=== PATIENT | male | born 1970 | race Caucasian/White ===

== ENCOUNTER 2020-08-02 12:06 | Outpatient (CLI) | payer OTHER, SELFPAY ==
[2020-08-02 12:51] LABS: SARS-CoV-2 Ag Negative (Negative)
== END 2020-08-02 12:07 | disposition home or self-care (01) ==
PROVIDERS: PCP Family Medicine; Visit Provider Family Medicine
DX: J00 Acute nasopharyngitis [common cold] (principal); Z20.828 Contact with and (suspected) exposure to other viral communicable diseases
CPT/HCPCS: 87081; 87426; 87880; C9803

== ENCOUNTER 2020-08-02 13:02 | Outpatient (CLI) | payer OTHER, SELFPAY ==
[2020-08-02 22:17] LABS: SARS-CoV-2 RNA PCR Negative
== END 2020-08-02 13:03 | disposition home or self-care (01) ==
LOC: CHSLAB 13:04
PROVIDERS: PCP Family Medicine; Visit Provider Family Medicine
DX: J00 Acute nasopharyngitis [common cold] (principal); Z20.828 Contact with and (suspected) exposure to other viral communicable diseases
CPT/HCPCS: C9803; U0003

== ENCOUNTER 2021-11-26 08:00 | Outpatient (CLI) | payer OTHER, SELFPAY ==
[2021-11-26 09:12] LABS: SARS-CoV-2 RNA PCR Negative (Negative)
== END 2021-11-26 08:01 | disposition home or self-care (01) ==
LOC: CHSLAB 08:02
PROVIDERS: PCP Family Medicine; Visit Provider Surgery
DX: Z01.818 Encounter for other preprocedural examination (principal); Z20.822 Contact with and (suspected) exposure to COVID-19
CPT/HCPCS: C9803; U0003; U0005

== ENCOUNTER 2021-11-29 07:38 | Outpatient (CLI) | payer OTHER, SELFPAY ==
[2021-11-29 10:59] LABS: IFOB Positive Control Positive; Immunochemical Fecal Occult Bl Positive (N)
== END 2021-11-29 07:39 | disposition home or self-care (01) ==
LOC: ANHLAB 07:39
PROVIDERS: PCP Family Medicine; Visit Provider Internal Medicine Gastroenterology
DX: R19.7 Diarrhea, unspecified (principal)
CPT/HCPCS: 82274; 87045; 87427

== ENCOUNTER 2021-11-30 01:22 | Day surgery (SDC) | payer OTHER, SELFPAY ==
[2021-11-21 14:27] VITALS: BMI 27.6
--- NOTE | 2021-11-21 14:34 | PC.NURSE ---
Report to the Outpatient Waiting Room, entrance under the green pavilion located off [facility], at time _1000_ on date _[id number]_. OR Time: __1200__. - You and your visitor will be asked a series of questions to screen for COVID 19 for your protection. - A mask is required within the hospital. Preoperative COVID Testing Requirements: Covid testing at [facility] 11-26-2021. No COVID Test needed if: (proof is required; if not received patient will have Rapid Test prior to entry) - Patient has received COVID Vaccine at least 14 days prior to procedure date or - Patient has positive COVID test result within last 90 days of surgery date. COVID Test needed if above criteria is not met If not COVID vaccinated a COVID test must be conducted within 72 hours of surgery and patient is asked to isolate self from time of testing until procedure. You will go to the [facility] for your COVID testing. The [facility] is located at the corner of [address] [facility]. You will only be called if COVID results are positive and your surgeon may reschedule your elective surgery date. Patients may have clear liquids (water, carbonated beverages, clear teas, apple juice) until 3 hours prior to surgery with a maximum of 20 ounces. - No food from midnight until time of surgery Take the following medications with a SIP of water the morning of surgery: Medications to discontinue per physician ___Multivitamin, B complex and fish oil Date to take last sijr____[id number] Please no make-up, nail georgian, hairspray, perfume, deodorant, or body powder the day of surgery. No jewelry (including any body piercings) or valuables the day of surgery, leave them at home. Please take a shower or bath the night before, or the morning of, surgery with an antibacterial soap. Wear comfortable, loose fitting clothing. Children are encouraged to wear pajamas. - Jewelry must be removed prior to entering the operating room. Rings and piercings that are not removed may be cut off. - The hospital will not accept responsibility for valuables. - Please leave all valuables, including medications, at home the day of surgery. If you are going home after surgery, a licensed furniture mover driver must drive you home. - NO public transportation without another adult. - We recommend that an adult stay with you for 24 hours following discharge. - We also recommend that you do not drive, make important decision, drink alcoholic beverages, or take any drugs that were not prescribed by your health care provider for at least 24 hours after your discharge time. For Pediatric surgeries, we recommend two adults accompany the child home (only one inside the building at this time). One visitor will be allowed to accompany the patient into the hospital. Patients visitor will be instructed to remain with patient at all times or leave the building. We will allow the visitor to come back to the postoperative area when patient is ready. Follow any additional instructions given to you from your surgeon. Telephone instructions given to patient____and asked if any additional questions and then verbalized understanding. Patient advised to call surgeon office or pre surgery nurse liaison [phone] if any additional questions.
[2021-11-30] VITALS (8 sets, daily range): BP systolic 98–131; BP diastolic 57–79; PULSE 48–71; RESP 10–20; TEMP 36.8; O2SAT 100
[2021-11-30] MEDS: ACETAMINOPHEN 500 MG TABLET 1000 MG PO (10:03)
[2021-11-30] MEDS: KETOROLAC 15 MG/ML VIAL (*BKC) IV PUSH (10:26)
--- NOTE | 2021-11-30 10:40 | WPDHPUPDATE1 ---
History and Physical Update Update Date/Time: 11/30/21 10:40 History and Physical has been reviewed, including an updated exam of the patient. There are NO changes in the patient's condition. Risks, benefits, and alternatives have been discussed and questions answered. Patient agrees to proceed with procedure.
--- NOTE | 2021-11-30 10:50 | P.PNAN_ITS ---
Anes - Initial Pre Proc Eval Procedure: Operation Date: 11/30/21 12:00 Proposed Procedures p Open Recurrent Right Inguinal Hernia Repair with Mesh - Aaron James DO Date/Time: 11/30/21 10:50 Surgeon: Aaron James DO Pre Op Diagnosis: recurrent right inguinal hernia Patient Data Age: 51 Gender: M Height: 1.88 m Weight: 96.15 kg Last Vital Signs Temp 36.8 C 11/30/21 09:59 Pulse 71 11/30/21 09:59 Resp 20 11/30/21 09:59 BP 128/77 11/30/21 09:59 Pulse Ox 100 11/30/21 09:59 Allergies Allergy/AdvReac Type Severity Reaction Status Date / Time No Known Allergies Allergy Verified 11/21/21 14:25 Home Medications Medication Instructions Recorded Confirmed Type mesalamine 1.2 gram tablet,delayed 4.8 g PO HS 11/08/21 11/30/21 History release multivitamin 1 tablet PO DAILY 11/08/21 11/30/21 History omega 4-chp-poe-fish oil 60 mg-90 1 cap PO DAILY 11/08/21 11/30/21 History mg-500 mg capsule vitamin B complex 1 tablet PO DAILY 11/08/21 11/30/21 History Patient hx anesthesia problems: post op nausea/vomiting Family hx anesthesia problems: none Results Review: All pre-operative results and documents have been reviewed as part of the pre-operative evaluation. [facility] Past Medical History Medical History History of blood transfusion Surgical History Surgical History H/O foot surgery x3 History of right inguinal hernia repair February [address] Abraham Juan Family History Family History Father Family history of lung cancer Family history of malignant melanoma Family history of pancreatic cancer Family history of malignant neoplasm of breast in first degree relative Other Family history of malignant neoplasm of breast Social History Social History Smoking status: Never smoker Alcohol intake: current Living arrangements: with family Spiritual care concerns: No Anes - Eval Final PreProcedure Day of Procedure 11/30/21 10:50 Patient weight: overweight Heart: regular rate and rhythm Lungs: clear to auscultation and normal air movement Airway: Mallampati scale class II Neurological: alert and oriented Last oral intake: >/= 8 hours ASA classification: II Emergent: no Anesthetic plan: proceed Anesthesia type and monitoring: general ETT and standard monitoring Results Review: All pre-operative results and documents have been reviewed as part of the pre-operative evaluation. Informed Consent: The patient's anesthetic plan and its attendant risks and benefits were discussed with the patient/family/POA. Questions were solicited and answers provided to the satisfaction of the patient/family/POA.
[2021-11-30] MEDS: SCOPOLAMINE 1.5 MG PATCH TRANSDERM (11:03)
[2021-11-30] MEDS: ceFAZolin 2 GM/D5W 50 ML 2 GM/50 ML BAG IVPB (11:07)
[2021-11-30] MEDS: LACTATED RINGERS 1,000 ML 30 ML IV CONT (11:07)
--- NOTE | 2021-11-30 12:23 | W.PM.PROC2 ---
Procedure Note - Detailed Date of Procedure 11/30/21 Pre-op Diagnosis recurrent right inguinal hernia Post-op Diagnosis Same (Recurrent direct right inguinal hernia) Procedure Performed Open recurrent right inguinal hernia repair with mesh Surgeon Aaron James, DO Anesthesia General and Local (0.25% bupivacaine with epinephrine) Indications This is a 51-year-old man who presented with a recent finding of a recurrent right inguinal hernia. He has a history of robotic assisted laparoscopic right inguinal hernia repair mesh on 03/24/2019. He was doing well after this repair but then about 6 months ago he noticed a recurrent bulge with some discomfort. He was found to have a recurrent right inguinal hernia on physical exam. Discussions were made with the patient about treatment options and decision was made to proceed with open recurrent right inguinal hernia repair with possible mesh. Findings Open recurrent right inguinal hernia repair was performed. The patient was found to have a recurrent direct right inguinal hernia. The hernia sac was reduced back within the abdominal cavity and a large PerFix Light plug was placed within the defect. The inner flanges of the mesh were secured to the inguinal floor. The patch was then placed deep to the external oblique aponeuroses overlying the inguinal floor and a slit was made in the mesh for the cord contents to pass through. No specimens were obtained for pathology. Description of Procedure Procedure as well as risks, benefits, and alternatives were discussed with the patient. Written consent was obtained and placed in chart prior to procedure. Patient was brought back to surgical suite. He was placed supine on operating table. Time-out was done to confirm patient and procedure. He was then intubated by the anesthesia department. His right groin area was prepped and draped in sterile fashion using chlorhexidine prep. A 6 cm oblique incision was made in the right groin region just superior to the inguinal ligament. Electrocautery was used for hemostasis and for dissection through Rissa's fascia. The external oblique aponeurosis was identified and was cleared the way down to the external ring. The external oblique aponeuroses was then cut using a 15 blade scalpel and then the incision was extended down to the external ring using Metzenbaum scissors. The cord contents were identified and isolated. No indirect hernia defect was identified. Just medial to the cord contents, I did identify a direct inguinal defect. The hernia sac was freed up from the surroundings cord contents all the way down to the floor of the inguinal canal. The hernia sac was then reduced back down into the abdominal cavity. I dissected widely enough around hernia sac to allow for mesh placement. The large PerFix Light plug was then placed within the hernia defect and carefully laid out to cover the entire hernia defect. The inner flanges of the mesh were then secured to the inguinal floor using 3-0 Vicryl simple interrupted sutures. I then ensured that there was a wide enough space for the patch to be placed along the inguinal floor. The patch was then placed under the cord contents and angle down to where it was overlapping the pubic tubercle. The mesh was secured to the pubic tubercle using a 2-0 Prolene simple interrupted suture. Several other simple interrupted sutures were placed along the mesh to the shelving edge of the inguinal canal and along the floor of the inguinal canal. A slit was cut in mesh long enough to allow the cord contents to lay flat. Back end of the 2 tails of the mesh were then secured around the cord contents with another simple interrupted suture. The mesh appeared to be lying flat within the inguinal floor. One final inspection was made no other abnormalities were noted. The external oblique aponeurosis was then closed over the mesh using 0 Vicryl running suture and the way back to the edge of the e
== END 2021-11-30 15:07 | disposition home or self-care (01) ==
PROVIDERS: PCP Family Medicine; Visit Provider Surgery
PROC: (CPT 49520; principal; 2021-11-30 12:00)
DX: K40.91 Unilateral inguinal hernia, without obstruction or gangrene, recurrent (principal)
CPT/HCPCS: 49520; A9270; C1781; J0690; J1100; J1885; J2250; J2405; J2704; J3010; J7120

== ENCOUNTER 2022-12-18 12:49 | Outpatient (CLI) | payer OTHER, SELFPAY ==
--- NOTE | ~2022-12-18 | XR_ITS ---
EXAMINATION: [id number] DATE: 12/18/2022 13:03 INDICATION: Left foot pain. TECHNIQUE: 4 views of left foot were obtained. COMPARISON: Left foot radiographs 05/02/2018 FINDINGS: There is deformity of base of first distal phalanx resulting in moderate hallux valgus. The re is an old healed fracture deformity of calcaneus. There is severe osteoarthritis of first metatars ophalangeal joint. Surgical clips overlie the lower leg and heel. IMPRESSION: 1. Moderate hallux valgus. 2. Severe osteoarthritis of first metatarsophalangeal joint. Reviewed, dictated and finalized at location A.
== END 2022-12-18 12:50 | disposition home or self-care (01) ==
LOC: ANHBWCIMG 12:51
PROVIDERS: Visit Provider Orthopaedic Surgery
DX: M20.12 Hallux valgus (acquired), left foot (principal); M19.072 Primary osteoarthritis, left ankle and foot
CPT/HCPCS: 73630

== ENCOUNTER 2023-08-10 11:56 | Outpatient (CLI) | payer OTHER, SELFPAY ==
--- NOTE | ~2023-08-10 | XR_ITS ---
XR ankle LT min 3V DATE: 08/10/2023 12:17 INDICATION: Wound on plantar surface of foot near heel since April TECHNIQUE: 4 views of left ankle COMPARISON: 05/09/2019 MR left ankle 04/2018 left foot FINDINGS: [place] are noted at the posterior aspect of the calcaneus. There is very prominent soft ti ssue swelling and multiple surgical clips in the anterior left lower leg. There is chronic calcaneal deformity, not significantly changed since 05/02/2018. There is subcutaneous soft tissue lucency along the plantar aspect of the foot subjacent to the calca neus likely corresponding to the clinical complaint of wound on the plantar surface of the foot. No c alcaneal periosteal reaction or bone destruction is evident. IMPRESSION: Plantar soft tissue wound without radiographic evidence of periosteal reaction or bone de struction of the calcaneus to suggest any evidence of osteomyelitis Posterior diego along the calcaneus Very prominent soft tissue swelling and surgical on the anterior lower leg Reviewed, dictated and finalized at location B. ERN FILER IMPRESSION: Plantar soft tissue wound without radiographic evidence of perioste al reaction or bone destruction of the calcaneus to suggest any evidence of ost eomyelitis Posterior diego along the calcaneus Very prominent soft tissue swelling and surgical on the anterior lower leg
== END 2023-08-10 11:57 | disposition home or self-care (01) ==
LOC: CHSIMG 12:00
PROVIDERS: PCP Family Medicine; Visit Provider Family Medicine
DX: M79.672 Pain in left foot (principal); M79.89 Other specified soft tissue disorders; Z98.890 Other specified postprocedural states
CPT/HCPCS: 73610

== ENCOUNTER 2024-06-05 12:59 | Outpatient (RCR) | payer MEDICARE, SELFPAY ==
--- NOTE | 2024-06-05 17:13 | OPREHPOC ---
Outpatient Therapy Plan of Care This is a Multidisciplinary Plan of Care that may contain components documented by all disciplines (PT, OT, and ST.) PT Problem 1 PT Problem #1 Knowledge Deficit PT Goal 1 Goal / Goal Update The patient will be independent in a home exercise program. Target Visit 4 PT Problem 2 PT Problem #2 Impaired Balance PT Goal 1 Goal / Goal Update The patient will demonstrate a low fall risk per the Tinetti Balance Scale. The patient will perform TUG test in 10 seconds with his custom prosthesis and no AD. Target Visit 12 PT Problem 3 PT Problem #3 Impaired Strength PT Goal 1 Goal / Goal Update The patient will demonstrate 5/5 bilateral glute max and glute med strength to improve balance and gait. Target Visit 12 PT Problem 4 PT Problem #4 Impaired Gait PT Goal 1 Goal / Goal Update The patient will ambulate 1,000 feet with his custom prosthesis and no AD with good mechanics and safety noted. Target Visit 12 PT Problem 5 PT Problem #5 Impaired Functional Mobil PT Goal 1 Goal / Goal Update The patient will demonstrate 40% or less self perceived disability per the LEFS. Target Visit 12
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
--- NOTE | 2024-06-25 08:56 | OPREHPOC ---
Outpatient Therapy Plan of Care This is a Multidisciplinary Plan of Care that may contain components documented by all disciplines (PT, OT, and ST.) PT Problem 1 PT Problem #1 Knowledge Deficit PT Goal 1 Goal / Goal Update The patient will be independent in a home exercise program. Target Visit 4 Progress Met PT Problem 2 PT Problem #2 Impaired Balance PT Goal 1 Goal / Goal Update The patient will demonstrate a low fall risk per the Tinetti Balance Scale. -met The patient will perform TUG test in 10 seconds with his custom prosthesis and no AD. -progress towards (12 seconds) Target Visit 12 Progress Partially Met PT Problem 3 PT Problem #3 Impaired Strength PT Goal 1 Goal / Goal Update The patient will demonstrate 5/5 bilateral glute max and glute med strength to improve balance and gait. Target Visit 12 Progress Met PT Problem 4 PT Problem #4 Impaired Gait PT Goal 1 Goal / Goal Update The patient will ambulate 1,000 feet with his custom prosthesis and no AD with good mechanics and safety noted. Target Visit 12 Progress Met PT Problem 5 PT Problem #5 Impaired Functional Mobil PT Goal 1 Goal / Goal Update The patient will demonstrate 40% or less self perceived disability per the LEFS. -progress towards (55%) Target Visit 12 Progress Partially Met
--- NOTE | 2024-06-25 08:57 | PTOPPROG ---
Assessment and note entered by Minda Canas, PT Evaluation Information Assessment Status Progress Diagnosis L BKA ICD-10 Condition Codes (PT) Difficulty Walking R26.2 Other ICD-10 Condition Codes ( Z89.512, Z74.09 PT) Onset 03/19/24 Subjective Information Brionna Young reports he is doing well overall with his prosthesis and getting used to wearing it . He notes he gets more pain when he over does it and is up on his feet too much but taking it easy for a day will resolve the pain. He is up to 3 hours of wear and 1 hour off now and will be up to a full day of wear by 07/04/24. He has worn his prosthesis for a full day when his daughters had all day tournaments but he used his crutches to help take some of the load off. He had an appointment with his telephone technician last week and some adjustments were made to his prosthesis which has made it more comfortable. He will have another appointment in about a week. He feels comfortable with his home exercises and reports he knows it will still take some getting used to but he is comfortable with the prosthesis and walking in it. Assessment PT Clinical Summary Brionna Young has completed 6 skilled PT visits for prosthetic training following a left BKA on . He is reporting mild pain in the residual limb with excessive walking with the prosthesis. Overall, he is comfortable with walking with his prosthesis and home exercises. He objectively demonstrates improved gait with his prosthesis to independent without an AD, improved endurance demonstrating the ability to ambulate 1,250 feet during the 6 minute walk test, improved balance to low fall risk, and improved LE strength to 5/5 throughout. He has met 4 out of 6 goals and made progress towards the remaining two goals. He will continue home exercises and increasing wear time in the prosthesis independently for the next two weeks and was instructed to follow up with PT if needed. Plan of Care Interventions Gait Training,Neuro Re-education,Patient/Caregiver Educati,Therapeutic Activities,Therapeutic Exercise PT Services Indicated No Treatment Frequency and 1 time a week for 2 visits as needed Duration These treatments will address the objective and functional deficits as defined above. The patient will be advanced safely and appropriately in order for the patient to progress towards his/her prior level of function. Additional exercises will be introduced and as well as a comprehensive home exercise program upon discharge, if needed, ?to ensure carryover of functional gains achieved in the clinic. This treatment plan has been reviewed and agreement upon by the patient.
--- NOTE | 2024-07-29 08:38 | PTOPDC ---
Assessment and note entered by Minda Canas, PT Evaluation Information Assessment Status Discharge - Pt Not Present Diagnosis L BKA ICD-10 Condition Codes (PT) Difficulty Walking R26.2 Other ICD-10 Condition Codes ( Z89.512, Z74.09 PT) Onset 03/19/24 Subjective Information Brionna stopped in approximately 2 weeks ago and was reporting no trouble with his prosthesis. Reported Pain Level Pain Score 0: Self Report Assessment PT Clinical Summary Brionna Young completed 6 skilled PT visits following a left BKA. He was put on hold at his last visit on 06/25/24 and was told to follow up as needed. He stopped in the clinic a couple weeks following that and was doing well with his prosthesis. He will be discharged. Plan of Care PT Services Indicated No
== END 2024-06-25 08:45 | disposition home or self-care (01) ==
LOC: CHSPT 12:59
DX: Z47.81 Encounter for orthopedic aftercare following surgical amputation (principal); R26.2 Difficulty in walking, not elsewhere classified; Z74.09 Other reduced mobility; Z89.512 Acquired absence of left leg below knee
CPT/HCPCS: 97110; 97112; 97116; 97161; 97530; 97750

== ENCOUNTER 2025-01-14 09:38 | Outpatient (CLI) | payer MEDICARE, SELFPAY ==
--- NOTE | ~2025-01-14 | XR_ITS ---
XR tibia fibula LT 2V Ordering provider: Tanner Montez MD History: . PAIN IN LEFT LEG,WEEPING WOUND AT SURGICAL SITE-SURG X10MO A . 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 Minimal osteopenia in the distal tibia. Os teomyelitis cannot be excluded. Follow-up advised. JOINT SPACES: Normal. SOFT TISSUES: Normal. 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 Osteopenia in the distal tibia which may indicate early osteomyelitis. Clinical correlation and follo w-up advised. Reviewed, dictated and finalized at location A. 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 Osteopenia in the distal tibia which may indicate early osteomyelitis. Clinical correlation and follow-up advised.
--- OUTSIDE RECORDS SUMMARY | 2025-01-14 10:38 | XMS_ITS | Clinical Summary ---
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 Take 1 tablet (200 mg total) by mouth as needed (Sleep issue's) 08/28/2018 Active valACYclovir (VALTREX) 1 gram tabletIndicatio ns:Fever blisters Take 1 tablet (1,000 mg total) by mouth as needed (Fever blisters) 08/10/2023 Active polycarbophil (FIBERCON) 625 mg tabletIndicatio ns:constipation Take 1 tablet (625 mg total) by mouth nightly Active aluminum hydroxide-magne sium carbonate (GAVISCON) 160-105 mg tablet,chewable Indications:Hea rtburn,gastroes ophageal reflux disease Take 4 tablets by mouth 3 (three) times a day before meals Active Active Problems Problem Noted Date Diagnosed Date Chronic pain in left foot 03/19/2024 Chronic foot pain, left 02/25/2024 COVID-19 vaccine series declined 08/23/2021 Chronic left calcaneous osteomyelitis 06/10/2021 Overview (06/10/2021): Added automatically from request for surgery [id number] Assessment & Plan (06/23/2022 12:51 PM ERP IMPLEMENTATION CONSULTANT): Previously draining sinus now appears closed. Patient notes occasional, but very minimal yellow drainage on the bandage There is a new fissure along a significant callous- but this is not currently infected. Patient may complete his course of clindamycin. Then continue to monitor for any changes. Unclear at this point whether he might benefit from any debridement with Ortho. Patient is currently able to walk and is independent in his ADLS. Unclear whether any additional surgery might compromise his ability to walk, etc. Consider surgery if he fails antibiotic therapy, but we will involve Ortho for additional input Assessment & Plan (08/23/2021 2:10 PM ERP IMPLEMENTATION CONSULTANT): On careful review of his chart, it appears that the most likely source of recurrent infection is necrotic/infected bone, not an external source, based on the description of the OR findings. There is a high degree of certainty that all infected bone has been removed. He has no retained hardware. As such, there is a very low likelihood of recurrence and stopping abx now vs later does not change the risk of recurrence. There is the possibility that he had a very slight area of infection around one of the diego (staple abscess) that is now resolved, but unrelated to underlying osteo. Patient should continue diligent wound care and follow up with Dr. Orr. Dr. Orr agreed with discontinuation of IV CTX today. Patient returned to ID clinic for PICC line removal. RTC PRN Assessment & Plan (07/19/2021 4:09 PM ERP IMPLEMENTATION CONSULTANT): Continue Ceftriaxone 2 grams IV every 24 hours for additional 4 weeks to complete a 6 week course of therapy. Continue weekly CBC, CMP for safety labs. Continue PICC line care Continue follow up with orthopedics RTC 4 weeks for follow up I explained to the patient that there are two scenarios: one is that the infection is coming from the inside (infected/necrotic bone) or that infection is being introduced externally on the surface of the skin and tracking inwards. Since he is a healthy male, the latter seems a little less likely. In either case, he has now had thorough debridement with excision of necrotic bone and a new flap which should prevent recurrence. I discussed the situation at length with Dr. Moss. On careful review of his chart, it appears that the most likely source of recurrent infection is necrotic/infected bone, not an external source, based on the description of the OR findings. The patient should be adequately treated now with source control and new flap + 6 weeks IV antibiotics. Patient should continue diligent wound care. Assessment & Plan (07/01/2021 1:31 PM ERP IMPLEMENTATION CONSULTANT): 50 y.o. male w/PMH of lawnmower L-calcaneous injury as a child with multiple subsequent complications (lastly MSSA & Klebsiella L-calcaneus OM in 2019 s/p 6w of IV abx); admitted for I&D and flap due to concern for recurrent wound infection. - MRI foot (): healed L-calcaneous fx with a sinus tract communication with the bone and a cloaca phlegmonous collection (Isdiro abscess) + severe Achilles tendinopathy. - CTA LLE (05/25/21: distal occlusion for posterior tibial artery and known calcaneous OM w/sinus tract. - baseline CrCl 97 ml/min, ESR 10, CRP 1.9, WBC 7.0, PT 261, LFTs wnl. - BCX (06/28) NGTD. - s/p L-calcaneus excisional debridement w/saucerization + wound VAC on 06/27/21. OR cx (06/27) growing MRSA and C.dysgalactiae. Interim developments: pt is in the OU after his flap, doing well, no complaints. No new cx obtained Prior cx MSSA, S dysgalactiaem narrowed to ctx. No retained HW 06/28 bld cx NGTD Recommendations -okay to stop vanc/cefazolin (done) - start ceftriaxone 2g IV q 24 hours (done) - OK to place PICC as he will need 6 weeks of IV abx. - cbc w/diff, cmp weekly; esr/crp at weeks 3 and 6 - ID will formally sign off but continue to follow the pt peripherally while in house. - Please call with any questions , concerns, changes in the patients' cultures or clinical status. - See the most recent ID plan of care note for detailed recommendations. Please contact the ID B&J Team ANGIE Rodriguez, 7-3; or the Attending with any questions or concerns. After hours, please contact the ID fellow surveyor oil well directional. tank terminal gauger (current) use of antibiotics 9 Assessment & Plan (08/23/2021 2:11 PM ERP IMPLEMENTATION CONSULTANT): Labs reviewed PICC line D/C'd today Assessment & Plan (07/19/2021 4:09 PM ERP IMPLEMENTATION CONSULTANT): Continue Ceftriaxone 2g IV Q 24 hours Continue weekly CBC, CMP Continue PICC line care RTC 4 months Assessment & Plan (01/28/2019 3:59 PM CDT): - CBC and CMP weekly while on IV antibiotics - PICC line dressing changed today in ID clinic. Weekly labs also drawn - Will continue to monitor LFTs while on cefepime. Patient notified to contact ID clinic if he develops abdominal pain and/or jaundice. Expect liver enzymes to return to normal when cefepime is complete - Continue to monitor for adverse effects of antibiotics Infection of left foot 11/27/2018 Overview (11/27/2018): Added automatically from request for surgery [id number] Assessment & Plan (04/15/2021 4:14 PM CDT): - No overt signs or symptoms of left foot infection on exam today. Recent x-ray without findings of osteomyelitis and inflammatory markers normal. He does have some small openings to the plantar surface of his foot with serous drainage. - Given his history of multiple previous infections to the foot it was decided to perform MRI of the L foot to evaluate for deep infection. Will try to obtain this prior to his ortho appt in the coming weeks. If findings of osteomyelitis will discuss with ortho the role of bone biopsy vs surgical debridement Assessment & Plan (12/27/2018 1:47 PM CDT): Hx L calcaneus lawnmower injury as a child s/p multiple surgeries now w/ chronic non-healing ulcer + likely calcaneal osteomyelitis. S/P OR I&D L calcaneus w/ bone biopsy + flap elevation and closure (12/25/18). Calc cx now + mixed orgs x 2. Pt is on vanc/cefe. VT 9.7 this am. ESR 7, crp 2. Recommendations: - continue cefepime 2000mg IV q12 hours - dc vanc (done) - add metronidazole 500mg po tid (done) - this regimen should cover his mixed orgs from this admission and the klebsiella, mssa he has grown in the past. - LFTs added to labs drawn - Plan for long-term IV antibiotics (6 weeks) - will need PICC line. - ID will formally sign off but continue to follow the pt peripherally while in house. - Please call with any questions or concerns. - See plan of care note dated 12/27/18 for detailed recommendations. Ulcerative colitis 09/09/2018 Acute osteomyelitis involving ankle and foot, le ft 05/27/2018 Overview (08/08/2018): Hx of left foot and ankle injury at age 11 followed by reconstruction and grafting. Did well for many years but presented 04/2018 with c/o non-healing ulcer and discharge form left heel over calcaneum x 8 weeks. Saw wire strander (Dr. Arroyo) who ordered MRI which showed evidence of calcaneal osteomyelitis. Culture of calcaneal wound revealed MSSA and Klebsiella oxytoca and he was started on Levofloxacin and Doxycycline. He presented for ID appointment on 05/27/18 while on PO antibiotics x 5 days and he had responded well. His Levofloxacin was switched to Augmentin at follow up on 06/24/18 due to Achilles tendon pain. His doxycycline was continued for 2 more weeks and he completed 6 weeks of doxycycline. Augmentin planned for 6-8 weeks. Assessment & Plan (06/23/2022 1:00 PM ERP IMPLEMENTATION CONSULTANT): Area of draining sinus appears closed, and the patient reports only very occasional and minimal drainage on bandage. Patient may complete his course of clindamycin, then monitor for symptoms. Recommend ongoing wound care. Patient may benefit from management of callous by podiatry (advised caution in self-trimming which might possibly lead to injury and infectious complications. Unclear if he might benefit from any further debridement with Ortho. Patient is currently able to walk and is independent in his ADLS. Additional surgery might compromise his ability to walk, etc. Given indolent course with minimal symptoms, will monitor response to therapy, and consider surgery only if recurrence occurs, but we will involve Ortho for additional input - photos are under media tab for ortho's review. Assessment & Plan (01/28/2019 3:57 PM CDT): - Unable to visualize surgical incision today due to cast but he has no systemic signs/symptoms of infection. Pain to left foot is minimal. Incision will be evaluated today by Dr. Camp. - Continue cefepime and flagyl to complete 6 weeks of therapy. FIRM STOP on 02/05/19. - PICC line to be pulled when IV antibiotics are complete - Discussed at length with patient the rational for treatment, current and previous culture results, lab results, operative findings, risk of recurrent infection, signs/symptoms of recurrent infection, and to contact ID clinic with any questions or concerns Assessment & Plan (09/09/2018 12:06 PM ERP IMPLEMENTATION CONSULTANT): Recommendations: - Exam concerning for persistent infection. He has completed several weeks of PO antibiotics and symptoms have gotten worse since being off antibiotic therapy for 4 weeks. Will defer antibiotic therapy at this time until additional testing is obtained as he is stable and has no fever or chills. - MRI of left ankle with contrast scheduled for Wednesday 09/13 - Based on MRI findings, anticipate IR bone biopsy after images are read by radiology. Will admit patient for procedure and possible PICC placement and IV antibiotics - Recommend ortho foot/ankle consult while inpatient - Repeat labs: CBC, CMP, ESR, and CRP to be obtained today in clinic - Discussed rationale for treatment, culture results, treatment plan, length of therapy, risk of recurrent infection, as well as signs/symptoms of recurrent infection (including but not limited to fevers/chills/night sweats, worsening pain/erythema/edema, etc) and to contact ID with any concerns - No follow up appointment scheduled today as admission is anticipated. Will contact patient if plan changes based on imaging results. Assessment & Plan (08/12/2018 12:07 PM ERP IMPLEMENTATION CONSULTANT): Recommendations: - Left foot healing well. Small open area with scan drainage remains but it has significantly improved since starting antibiotic therapy. - STOP Augmentin as he has received 7 weeks of Augmentin therapy and has been on some form of PO antibiotics x 3 months. - Follow up with podiatry for continued foot care. May need removal of callus to promote healing of open area. - Will see in ID clinic in 1 month. If no improvement in open wound or drainage he will received MRI. - Discussed rationale for treatment, culture results, treatment plan, length of therapy, risk of recurrent infection, as well as signs/symptoms of recurrent infection (including but not limited to fevers/chills/night sweats, worsening pain/erythema/edema, increase in drainage or size of wound, etc) and to contact ID with any concerns - F/u with ID in 1 month Assessment & Plan (06/25/2018 1:13 PM ERP IMPLEMENTATION CONSULTANT): Likely due to anatomical malalignment from prior surgery/ pressure ulcers . First episode of infection in many years of Likely contiguous osteomyelitis Currently clinically stable and improving much on oral antibiotics - Levoflox and doxycycline. In view of significant improvement pt is not keen on a biopsy and IV antibiotics . His inflammatory markers are normal Will continue his oral antibiotics today - However endorses significant achilles tendon pain which he reprots is chronic - Will change Levoflox to oral Augmentin 875 mg for 4 more weeks and doxycycline for 2 more weeks. [MSSA and Klebsiella oxytoca ( gaetano to augmentin)] If he continues to do well will continue Augmentin for a total of 6-8 weeks more Explained in detail the plan to the patient. Assessment & Plan (05/27/2018 10:39 AM CDT): Likely due to anatomical malalignment from prior surgery/ pressure ulcers . First episode of infection in many years. Likely contiguous osteomyelitis Currently clinically stable Will get MRI disc/ images , upload to Marti and then see if we can pursue a bone biopsy and cultrues and then will plan on IV antibiotics. Will continue his oral antibiotics today - will hold 3-4 days prior to biopsy to increase the yield. Labs today Explained in detail the plan to the patient. Immunizations Immunization Administration Dates Next Due Tdap 12/14/2014 Surgical History Surgery Date Site/Laterality Comments ANKLE SURGERY 1980s Left following lawnmower injury to L calcaneus- multiple surgeries--last summer 1981 COLONOSCOPY 2019 WOUND DEBRIDEMENT 11/27/2018 - 12/27/2018 Left heel HERNIA REPAIR 07/30/2018 - 07/29/2019 Medical History Medical History Date Comments Allergic rhinitis Ankle injury 1980s lawnmower injury to left calcaneus c/b persistent draining small sinus over plantar aspect of his heel Motion sickness Ulcerative colitis (HCC) PONV (postoperative nausea and vomiting) when he had surgery around age 10, has had no problems since Family History Medical History Relation Name Comments Cancer Father Anesthesia problems Son post op agitation Relation Name Status Comments Father Son Social History Tobacco Use Types Packs/Day Years Used Date Smoking Tobacco: Never Passive Smoke Exposure: Past Smokeless Tobacco: Never Tobacco Cessation:Counseling Given: Not Answered Alcohol Use Standard Drinks/Week Comments Yes 7 (1 standard drink = 0.6 oz pur e alcohol) AUDIT-C Answer Date Recorded Q1: How often do you have a drink containing alcohol? 4 or more times a week 03/19/2024 Q2: How many drinks containi ng alcohol do you have on a typical day when you are drinking? 3 or 4 Q3: How often do you have si x or more drinks on one occasion? Less than monthly 03/19/2024 PHQ-2 Answer Date Recorded PHQ-2 Score 0 03/20/2019 Personal Safety Answer Date Recorded Have you ever been in or are you currently in a harmful physical or emotional relationship or is someone making you feel afraid or unsafe? Denies 03/19/2024 Sex and Gender Information Value Date Recorded Sex Assigned at Not on file Legal Sex Male 1:13 PM CDT Gender Identity Male 12/13/2021 6:39 AM CDT Sexual Orientation Straight 12/13/2021 6: 39 AM CDT Obstetrics History Last Filed Vital Signs Vital Sign Reading Time Taken Comments Blood Pressure 146/87 08/12/2024 2:11 PM ERP IMPLEMENTATION CONSULTANT Pulse 83 08/12/2024 2:11 PM ERP IMPLEMENTATION CONSULTANT Temperature 36.3 C (97.4 F) 03/20/2024 11:40 AM CDT Respiratory Rate 20 03/20/2024 11:40 AM CDT Oxygen Saturation 97% 03/20/2024 11:40 AM CDT Inhaled Oxygen Concentration - - Weight 108.4 kg (239 lb) 08/12/2024 2:11 PM ERP IMPLEMENTATION CONSULTANT Height 188 cm (6' 2) 03/19/2024 3:25 PM CDT Body Mass Index 30.69 03/19/2024 3:25 PM CDT Plan of Treatment Health Maintenance Due Date Last Done Comments Colon Cancer Screening-Colonoscopy 1971 Hepatitis C Screening 1971 Prostate Cancer Screening-PSA 1971 Hepatitis B Screening 1989 Regular Well Visit/Exam 18-64 1989 Depression Screening 11/28/2019 11/27/2018, 11/27/2018 Zoster Vaccine (1 of 2) 2021 DTaP/Tdap/Td Vaccine (2 - Td or Tdap) 12/14/2024 12/14/2014 Influenza Vaccine (Season Ended) 2025 07/06/2023 Pneumococcal vaccine <65 Aged Out No longer eligible based on patient's age to complete this topic Medical Devices Implanted Type Area Service Greeter Device Identifier Shelf Expiration Date Model / Serial / Lot Syn[employer]is Centaur Harshad [address] [place] 2.5mm Ring Pin Ultrasonic Doppler 20mhz Scratcher Anastomosis Latex Free - [id number] Implanted:Qty: 1 on 06/30/2021 by Austen Dempsey MD at [facility] Left: Leg Syn[employer] Centaur Harshad [id number] 10/14/2025 [id number] / / [id number] Insurance [employer] MEDICARE GOLD [facility] CHOICE PLUS [facility] CHO[facility] PLUS [employer] MEDICARE GOLD Advance Directives For more information, please contact: [phone] * Full Code (Latest Code Status on File) Date Activated Date Inactivated Comments 03/19/2024 2:12 PM 03/20/2024 8:31 PM * Full Code Date Activated Date Inactivated Comments 06/27/2021 12:18 PM 07/06/2021 10:15 PM * Full Code Date Activated Date Inactivated Comments 12/25/2018 12:48 PM 12/27/2018 7:16 PM Care Teams It Operations Analyst Relationship Specialty Start Date End Date Tanner Montez MD [address] [place] [address] PCP - General 01/13/19 Africa Joel MD Consulting Physician Infectious Diseases 12/27/18
--- OUTSIDE RECORDS SUMMARY | 2025-01-14 10:38 | XMS_ITS | Referral Summary ---
Author Organization [facility] Healthcare Address [address] [place] [address] Care Team Providers Care Miller Wood Flour Name Role Phone Africa Joel MD Unavailable [phone] Tanner Montez MD Primary Care Provide r [...] (06/10/2021): Added automatically from request for surgery [id number] Assessment & Plan (06/23/2022 12:51 PM YARD SWITCHER): Previously draining sinus now appears closed. Patient [...] input Assessment & Plan (08/23/2021 2:10 PM YARD SWITCHER): On careful review of his chart, it [...] PRN Assessment & Plan (07/19/2021 4:09 PM YARD SWITCHER): Continue Ceftriaxone 2 grams IV every 24 [...] care. Assessment & Plan (07/01/2021 1:31 PM YARD SWITCHER): 50 y.o. male w/PMH of lawnmower L-calcaneous injury as a child with multiple subsequent complications (lastly MSSA & Klebsiella L-calcaneus OM in 2019 s/p 6w of IV abx); admitted for I&D and flap due to concern for recurrent wound infection. - MRI foot (): healed L-calcaneous fx with a sinus tract communication with the bone and a cloaca phlegmonous collection (Isidro abscess) + severe Achilles tendinopathy. - CTA [...] After hours, please contact the ID fellow learning and development consultant. ad terminal makeup operator (current) use of antibiotics 9 Assessment & Plan (08/23/2021 2:11 PM YARD SWITCHER): Labs reviewed PICC line D/C'd today Assessment & Plan (07/19/2021 4:09 PM YARD SWITCHER): Continue Ceftriaxone 2g IV Q 24 hours [...] heel over calcaneum x 8 weeks. Saw test driller (Dr. Arroyo) who ordered MRI which showed [...] weeks. Assessment & Plan (06/23/2022 1:00 PM YARD SWITCHER): Area of draining sinus appears closed, and [...] concerns Assessment & Plan (09/09/2018 12:06 PM YARD SWITCHER): Recommendations: - Exam concerning for persistent infection. [...] results. Assessment & Plan (08/12/2018 12:07 PM YARD SWITCHER): Recommendations: - Left foot healing well. Small [...] month Assessment & Plan (06/25/2018 1:13 PM YARD SWITCHER): Likely due to anatomical malalignment from prior [...] Immunization Administration Dates Next Due Tdap 12/14/2014 Social History Tobacco Use Types Packs/Day Years [...] Orientation Straight 12/13/2021 6: 39 AM CDT Last Filed Vital Signs Vital Sign Reading Time Taken Comments Blood Pressure 146/87 08/12/2024 2:11 PM YARD SWITCHER Pulse 83 08/12/2024 2:11 PM YARD SWITCHER Temperature 36.3 C (97.4 F) 03/20/2024 11:40 AM CDT Respiratory Rate 20 03/20/2024 11:40 AM CDT Oxygen Saturation 97% 03/20/2024 11:40 AM CDT Inhaled Oxygen Concentration - - Weight 108.4 kg (239 lb) 08/12/2024 2:11 PM YARD SWITCHER Height 188 cm (6' 2) 03/19/2024 3:25 PM CDT Body Mass Index 30.69 03/19/2024 3:25 PM CDT Plan of Treatment Not on file Medical Devices Implanted Type Area Lamp Assembler Device Identifier Shelf Expiration Date Model / Serial / Lot [employer]Borderss [employer]ian [address] [place] 2.5mm Ring Pin Ultrasonic Doppler 20mhz Allergy Nurse Anastomosis Latex Free - [id number] Implanted:Qty: 1 on 06/30/2021 by Austen Dempsey MD at [facility] Left: Leg Synovis LapSpace [id number] 10/14/2025 [id number] / / [id number] Insurance [employer] MEDICARE GOLD [facility]ICE PLUS [facility]/PPO Address: [address] [address] [place] [address] [facility] CHO[facility] PLUS [facility]/PPO Address: [address] [address] [place] [address] [employer] MEDICARE GOLD Advance Directives For more information, please contact: [phone] * Full Code (Latest Code Status on File) Date Activated Date Inactivated Comments 03/19/2024 2:12 PM 03/20/2024 8:31 PM * Full Code Date Activated Date Inactivated Comments 06/27/2021 12:18 PM 07/06/2021 10:15 PM * Full Code Date Activated Date Inactivated Comments 12/25/2018 12:48 PM 12/27/2018 7:16 PM Care Teams Miller Wood Flour Relationship Specialty Start Date End Date Tanner Montez MD [address] [place] [address] PCP - General 01/13/19 Africa Joel MD Consulting Physician Infectious Diseases 12/27/18
== END 2025-01-14 09:39 | disposition home or self-care (01) ==
LOC: CHSIMG 09:42
PROVIDERS: PCP Family Medicine; Visit Provider Family Medicine
DX: M79.605 Pain in left leg (principal); Z89.512 Acquired absence of left leg below knee; M85.88 Other specified disorders of bone density and structure, other site
CPT/HCPCS: 73590

== ENCOUNTER 2025-03-29 09:11 | Emergency (ER) | payer MEDICARE, SELFPAY ==
--- NOTE | ~2025-03-29 | CT_ITS ---
EXAMINATION: CT knee LT wo con DATE: 03/29/2025 10:10 INDICATION: Left gbrzt-ter-pgax amputation with pain at the residual liver TECHNIQUE: High resolution computed tomography (CT) of the left knee was performed without intravenous contrast. Additional sagittal and coronal reconstructions were performed. Automated exposure control and iterative reconstruction technique were employed. The dose-length product was 737.47 mGy-cm. COMPARISON: Radiographs dated 01/14/2025 FINDINGS: Left elxiv-jqm-cxae amputation with minimal periosteal reaction along the distal tibial and fibular osteotomy margins. The osteotomy margins appear unchanged when compared with radiograph dated 01/14/2025 with no evident progressive ostial lysis to suggest osteomyelitis. There is normal fatty marrow attenuation within the intramedullary space at the osteotomy margins with no evident replacement of the marrow to suggest osteomyelitis. There is some skin thickening and mild airspace edema at the distal margin of the stump. No evident fluid collection to suggest abscess. Joint space at the left knee are relatively preserved. No knee joint effusion. IMPRESSION: 1. Left hghtg-rab-gvcg amputation with mild skin thickening and stranding about the distal margin of the stump which could be seen with cellulitis either septic or aseptic. No evident abscess or findings to suggest osteomyelitis. Reviewed, dictated and finalized at location A. IMPRESSION: 1. Left sdzjn-lst-avhw amputation with mild skin thickening and stranding about the distal margin of the stump which could be seen with cellulitis either sept ic or aseptic. No evident abscess or findings to suggest osteomyelitis.
[2025-03-29 09:13] VITALS: BP 156/99; PULSE 75; RESP 18; TEMP 36.6; O2SAT 98
--- NOTE | 2025-03-29 09:16 | ED_ITS ---
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 This started yesterday. He has 2 areas of wounds/ ulcerations that are healing up from the prosthesis but the 1 behind the knee continues to drain for awhile of clear fluid and it was tested by the primary doctor to be no growth. MD complaint: leg injury Onset (ago): day(s) ( Two) Type of Injury: other ( no current injury; using prosthesis from time to time which causes friction to the area) Place: home Severity: moderate Severity scale (1-10): 5 Relieving factors: nothing Exacerbating factors: movement and palpation Context: other ( patient has a left askxk-kxe-btdz amputation with irritation and pain behind the left knee and at the stump for the past day; there are 2 areas of openings to the skin) Associated symptoms: other ( pain at the distal stump on the left) Other symptoms: none Treatments prior to arrival: cold therapy ( heat therapy) Related Data Home Medications ?Medication ?Instructions ?Recorded ?Confirmed ?Last Taken ?Type multivitamin 1 tablet PO DAILY 11/08/21 0 12/18/22 11/27/21 History omega 3-ucv-met-fish oil 60 mg-90 1 cap PO DAILY 11/0812/18/22 11/27/21 History mg-500 mg capsule (Fish Oil) vitamin B complex (B 1 tablet PO DAILY 11/08/21 0 12/18/22 11/27/21 History Complex-Vitamin B12 tablet) modafinil 200 mg tablet 200 mg PO DAILY 03/29/25 Un known History Allergies Allergy/AdvReac Type Severity Reaction Status Date / Time No Known Allergies Allergy Verified 03/29/25 09:20 Review of Systems 2 Review of Systems: All systems reviewed & are unremarkable except as noted in HPI and below Constitutional: Constitutional: Reports no additional constitutional complaints Eyes: Eyes: Reports no additional eye complaints ENT: Reports system reviewed and no additional complaints, except as documented Cardiovascular: Cardiovascular: Reports no additional cardiovascular complaints Respiratory: Respiratory: Reports no additional respiratory complaints Gastrointestinal: Gastrointestinal: Reports no additional gastrointestinal complaints Genitourinary: Genitourinary: Reports no additional male genitourinary complaints Musculoskeletal: Musculoskeletal: Reports no additional musculoskeletal complaints Integumentary/Breasts: Skin/Breast: Reports system reviewed and no additional complaints, except as docu Neurologic: Reports system reviewed and no additional complaints, except as documented Psychiatric: Psychiatric: Reports no additional psychiatric complaints Endocrine: Endocrine: Reports no additional endocrine complaints Hematologic/Lymphatic: Hematologic/Lymphatic: Reports no additional hematologic/lymphatic complaints Allergic/Immunologic: Allergic/Immunologic: Reports no additional allergic/immunologic complaints PMFSH Past Medical History Medical History 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 Abraham Juan H/O foot surgery x3 Family History Family History Father Family history of lung cancer Family history of malignant melanoma Family history of pancreatic cancer Family history of malignant neoplasm of breast in first degree relative Other Family history of malignant neoplasm of breast Social History Social History Smoking status: Never smoker Alcohol intake: current Living arrangements: with family Occupation/Education: retired Spiritual care concerns: No Exam 2 Const: General: healthy appearing Nutritional Appearance: well nourished Orientation/consciousness: patient oriented x3 HENMT: Head: normal to inspection Ears: external ears normal F dimas/Nose/Sinus: Normal external nose present Eyes: Conjunctivae: conjunctivae normal Pupils: Equal, round and reactive pupils present EOM: EOMs intact bilaterally Neck: Neck: normal visual inspection Chest: Chest palpation & inspection: normal inspection of the chest Resp: Effort & Inspection: normal respiratory effort and not labored A uscultation: clear to auscultation bilaterally and no crackles Cardio: Rate: regular rate Rhythm: regular rhythm Heart sounds: no murmurs GI: Inspection: non-distended GI Palp: Yes Soft to palpation and No Tenderness to palpation present (GI) Auscultation: normal bowel sounds : General: Yes bladder normal to palpation Back/Spine/Pelvis: Back: no CVA tenderness Skin: General skin exam: normal color Rashes: no rashes Wounds: wound noted Other: left stump has a small healing wound without drainage and the posterior left knee has a small wound with clear fluid at times; no signs of overt cellulitis ; well's criteria is 1 Neuro: General: patient oriented x3, moves all extremities ( left smjwa-qavu-ltgbfczbvr), no meningeal signs and no focal motor deficits Extrem: General: abnormal to inspection Other: left lower extremity vaxxt-yka-hjrb amputation with a stump and a flap in good repair as this was a year ago; he is having pain behind the left knee and at the stump area to palpation and without palpation Psych: Mental Status: mental status grossly normal Affect: normal affect Attitude: cooperative Course Vital Signs Vital signs: Vital Signs Temperature 36.6 C 03/29/25 09:13 Pulse Rate 75 03/29/25 09:13 Respiratory Rate 18 03/29/25 09:13 Blood Pressure 156/99 H 03/29/25 09:13 Pulse Oximetry 98 03/29/25 09:13 Oxygen Delivery Room Air 03/29/25 09:13 Temperature 36.6 C 03/29/25 09:13 Pulse Rate 75 03/29/25 09:13 Respiratory Rate 18 03/29/25 09:13 Blood Pressure 156/99 H 03/29/25 09:13 Pulse Oximetry 98 03/29/25 09:13 Oxygen Delivery Room Air 03/29/25 09:13 MDM - Extremity Injury (Lower) MDM Narrative Medical decision making narrative: patient is a 54-year-old male with left lower extremity at the knee and stump of the left BKA pain at both places for the past day. We will get CT scan of the lower extremity on the left and labs. Cellulitis seen on the CT scan of the stump. D-dimer is elevated and we will need to get ultrasound today or tomorrow plan for the patient. patient will go to [facility] ER for ultrasound venous today. Lab Data Attestation: I reviewed the patient's lab results. 03/29/25 09:50 08/31/25 09:42 Labs: Lab Results 03/29/25 03/29/25 Range/Units 09:42 09:50 WBC 9.1 (4.8-10.8) K/mm3 RBC 4.20 L (4.70-6.10) M/mm3 Hgb 12.8 L (14.0-18.0) g/dL Hct 38.4 L (40.0-54.0) % MCV 91.4 (78.0-102.0) fL MCH 30.5 (27.0-31.0) pg MCHC 33.3 (32-36) g/dL RDW 12.6 (11.6-14.4) % Plt Count 333 (150-420) K/mm3 MPV 8.3 L (8.7-11.0) fl Immature Gran % (Auto) 0.4 H (0.0-0.0) % Neut % (Auto) 72.6 H (50.0-70.0) % Lymph % (Auto) 14.4 L (18.0-42.0) % Barnwell % (Auto) 7.5 (2.0-11.0) % Eos % (Auto) 4.5 (1.0-6.0) % Baso % (Auto) 0.6 (0.0-1.0) % Lymph # (Auto) 1.31 (1.10-4.50) K/mm3 [place]well # (Auto) 0.68 (0.10-0.90) K/mm3 Eos # (Auto) 0.41 (0.02-0.50) K/mm3 Baso # (Auto) 0.05 (0.00-0.10) K/mm3 Abs Immat Gran (auto) 0.04 H (0.00-0.00) K/mm3 Absolute Neuts (auto) 6.58 (1.70-7.20) K/mm3 Absolute Nucleated RBC 0.00 (0.00-0.00) K/mm3 Nucleated RBC % 0.0 (0-0.0) % D-Dimer 0.82 H (0.19-0.50) mg/L Sodium 143 (137-145) mmol/L Potassium 4.7 (3.4-5.0) mmol/L Chloride 105 (98-107) mmol/L Carbon Dioxide 31 H (22-30) mmol/L Anion Gap 7 (4-12) mmol/L BUN 16 (9-20) mg/dL Creatinine 1.05 (0.7-1.3) mg/dL Estim Creat Clear Calc 79 ml/min Estimated GFR > 60 (59 - ) Glucose 107 (65-110) mg/dL Calculated Osmolality 297 H (285-295) mOsm/kg Lactic Acid 1.7 (0.4-2.0) mmol/L Calcium 9.7 (8.4-10.2) mg/dL Total Bilirubin 0.5 (0.2-1.3) mg/dL AST 27 (17-59) U/L ALT 28 (6-50) U/L Alkaline Phosphatase 83 (38-126) U/L C-Reactive Protein 0.9 (<1.0) mg/dL Total Protein 7.2 (6.3-8.2) g/dL Albumin 4.2 (3.5-5.1) g/dL Imaging Data Attestation: I personally reviewed and interpreted this imaging study as follows: Radiologist's impression: CT scan left lower extremity/ knee shows IMPRESSION: 1. Left retzu-eda-idzs amputation with mild skin thickening and stranding about the distal margin of the stump which could be seen with cellulitis either septic or aseptic. No evident abscess or findings to suggest osteomyelitis. Discharge Plan Discharge Clinical Impression: Cellulitis of left lower extremity, D-dimer, elevated Patient Disposition: Acute Care Hospital Condition: Stable Instructions: Antibiotic Form, Cellulitis (ED) Additional Instructions: please go to [facility] Emergency Room for a planned evaluation to rule out blood clots. We have sent in the antibiotics needed for this infection. Patient Language: Jordanian Prescriptions: New clindamycin HCl [Cleocin HCl] 300 mg capsule 300 mg PO TID 7 Days Qty: 21 0RF No Action modafinil 200 mg tablet 200 mg PO DAILY multivitamin Tablet 1 tablet PO DAILY vitamin B complex [B Complex-Vitamin B12] Tablet 1 tablet PO DAILY omega 5-jef-nwu-fish oil [Fish Oil] 60-90-500 mg capsule 1 cap PO DAILY Follow-up/Referrals: Tanner Montez MD [Primary Care Provider, Internal Medicine] Time of Disposition: 11:24
[2025-03-29 09:54] LABS: Hematocrit 38.4 % (40.0-54.0); Hemoglobin 12.8 g/dL (14.0-18.0); Immature Granulocyte Percent A 0.4 % (0.0-0.0); Lymphocytes Absolute Auto 1.31 K/mm3 (1.10-4.50); Mean Corpuscular HGB Conc 33.3 g/dL (32-36); Mean Corpuscular Hemoglobin 30.5 pg (27.0-31.0); Mean Corpuscular Volume 91.4 fL (78.0-102.0); Nucleated Red Blood Cells Absolute Auto 0.00 K/mm3 (0.00-0.00); Nucleated Red Blood Cells Perc 0.0 % (0-0.0); Platelet Count Result 333 K/mm3 (150-420); Red Blood Count 4.20 M/mm3 (4.70-6.10); White Blood Count 9.1 K/mm3 (4.8-10.8)
[2025-03-29 10:06] LABS: Alanine Aminotransferase 28 U/L (6-50); Albumin Level 4.2 g/dL (3.5-5.1); Alkaline Phosphatase 83 U/L (38-126); Anion Gap 7 mmol/L (4-12); Aspartate Amino Transferase 27 U/L (17-59); Bilirubin,Total 0.5 mg/dL (0.2-1.3); Blood Urea Nitrogen 16 mg/dL (9-20); Calcium 9.7 mg/dL (8.4-10.2); Carbon Dioxide 31 mmol/L (22-30); Chloride 105 mmol/L (98-107); Estimated CRCL calculation 79 ml/min; Estimated Glomerular Filt Rate > 60; Glucose 107 mg/dL (65-110); Osmolality Calculated 297 mOsm/kg (285-295); Potassium 4.7 mmol/L (3.4-5.0); Sodium 143 mmol/L (137-145); Total Protein 7.2 g/dL (6.3-8.2)
--- OUTSIDE RECORDS SUMMARY | 2025-03-29 10:12 | XMS_ITS | Clinical Summary ---
Author Organization [facility] Healthcare Address [address] [place] [address] Care Team Providers Care Physician Intensivist Name Role Phone Africa Joel MD Unavailable [phone] Tanner Montez MD Primary Care Provide r [...] (06/10/2021): Added automatically from request for surgery [id number] Assessment & Plan (06/23/2022 12:51 PM CANAL EQUIPMENT MAINTENANCE SUPERVISOR): Previously draining sinus now appears closed. Patient [...] input Assessment & Plan (08/23/2021 2:10 PM CANAL EQUIPMENT MAINTENANCE SUPERVISOR): On careful review of his chart, it [...] PRN Assessment & Plan (07/19/2021 4:09 PM CANAL EQUIPMENT MAINTENANCE SUPERVISOR): Continue Ceftriaxone 2 grams IV every 24 [...] care. Assessment & Plan (07/01/2021 1:31 PM CANAL EQUIPMENT MAINTENANCE SUPERVISOR): 50 y.o. male w/PMH of lawnmower L-calcaneous [...] After hours, please contact the ID fellow wafer production lead worker. assisted (current) use of antibiotics 9 Assessment & Plan (08/23/2021 2:11 PM CANAL EQUIPMENT MAINTENANCE SUPERVISOR): Labs reviewed PICC line D/C'd today Assessment & Plan (07/19/2021 4:09 PM CANAL EQUIPMENT MAINTENANCE SUPERVISOR): Continue Ceftriaxone 2g IV Q 24 hours [...] heel over calcaneum x 8 weeks. Saw senior systems analyst (Dr. Arroyo) who ordered MRI which showed [...] weeks. Assessment & Plan (06/23/2022 1:00 PM CANAL EQUIPMENT MAINTENANCE SUPERVISOR): Area of draining sinus appears closed, and [...] concerns Assessment & Plan (09/09/2018 12:06 PM CANAL EQUIPMENT MAINTENANCE SUPERVISOR): Recommendations: - Exam concerning for persistent infection. [...] results. Assessment & Plan (08/12/2018 12:07 PM CANAL EQUIPMENT MAINTENANCE SUPERVISOR): Recommendations: - Left foot healing well. Small [...] month Assessment & Plan (06/25/2018 1:13 PM CANAL EQUIPMENT MAINTENANCE SUPERVISOR): Likely due to anatomical malalignment from prior [...] in detail the plan to the patient. Encounters Date Type Department Care Team Description 02/10/2025 1:00 PM CDT Office Visit [facility] Medicine Orthopaedic Surgery [address] [place] [address] Ishan Miles PA History of left below knee amputation (HCC) (Primary Dx); Impaired functional mobility, balance, gait, and endurance 02/09/2025 Telephone [facility] Medicine Orthopaedic Surgery [address] [place] [address] [place] [address] Ishan Miles PA 01/20/2025 Telephone [facility] Medicine Orthopaedic Surgery [address] [facility] Medical Office Building [address] [place] [address] Bertha Sibley RN 01/20/2025 Results Follow-Up [facility] Orthopaedic Surgery [address] [facility] 2[address] [place] [phone] Melchor Camp MD XR Knee Left 1 or 2 Views 01/19/2025 3:33 PM CDT - 01/19/2025 11:59 PM CDT Hospital Encounter [facility] [id number] [place] [address] Melchor Camp MD Left knee pain, unspecified chronicity Discharge Disposition: Discharge to home or self care 01/19/2025 2:00 PM CDT Office Visit [facility] Orthopaedic Surgery [address] [facility] 2[address] [place] [phone] Melchor Camp MD Left knee pain, unspecified chronicity (Primary Dx) from Last 3 Months Immunizations Immunization Administration Dates Next Due Tdap 12/14/2014 Surgical History Surgery Date Site/Laterality Comments ANKLE SURGERY Left following lawnmower injury to L calcaneus- multiple surgeries--last summer 1981 COLONOSCOPY 2019 WOUND DEBRIDEMENT 11/27/2018 - 12/27/2018 Left heel HERNIA REPAIR 07/30/2018 - 07/29/2019 Medical History Medical History Date Comments Allergic rhinitis Ankle injury lawnmower injury to left calcaneus c/b persistent draining small sinus over plantar aspect of his heel Motion sickness Ulcerative colitis PONV (postoperative nausea and vomiting) when he [...] Sign Reading Time Taken Comments Blood Pressure 136/84 02/10/2025 1:08 PM CDT Pulse 89 02/10/2025 1:08 PM CDT Temperature 36.3 C (97.4 F) 03/20/2024 11:40 AM CDT Respiratory Rate 20 03/20/2024 11:4 0 AM CDT Oxygen Saturation 97% 03/20/2024 11: 40 AM CDT Inhaled Oxygen Concentration - - Weight 99.2 kg (218 lb 12.8 oz) 02/10/2025 1:08 PM CDT Height 188 cm (6' 2) 03/19/2024 3:25 PM CDT Body Mass Index 28.09 03/19/2024 3:25 PM CDT Plan of Treatment Health Maintenance Due Date Last Done Comments Colon Cancer Screening-Colonoscopy 1971 Hepatitis C Screening 1971 Prostate Cancer Screening-PSA 1971 Hepatitis B Screening 1989 Regular Well Visit/Exam 18-64 1989 Depression Screening 11/28/2019 11/27/2018, 11/27/2018 Zoster Vaccine (1 of 2) 2021 DTaP/Tdap/Td Vaccine (2 - Td or Tdap) 12/14/2024 12/14/2014 Influenza Vaccine (#1) 2025 07/06/2023 Pneumococcal vaccine <65 Aged Out No longer eligible based on patient's age to complete this topic Medical Devices Implanted Type Area Edge Bander Hand Device Identifier Shelf Expiration Date Model / Serial / Lot Synovis True Fit Allian 2753 [place] 2.5mm Ring Pin Ultrasonic Doppler 20mhz Gear Repairer Anastomosis Latex Free - [id number] Implanted:Qty: 1 on 06/30/2021 by Austen Dempsey MD at [facility] Left: Leg Synovis True Fit Harshad [id number] 10/14/2025 2753 / / [id number] Procedures Procedure Name Priority Date/Time Associated Diagnosis Comments XR KNEE LEFT 1 OR 2 VIEWS Schedule Routine, Read Routine (OP Routine) 01/19/2025 3:40 PM CDT Left knee pain, unspecified chronicity from Last 3 Months Results * XR Knee Left 1 or 2 Views (01/19/2025 3:40 PM CDT) Anatomical Region Laterality Modality Lower Extremities, Knee Left Computed Radiography 01/19/2025 5:02 PM CDT Impressions 01/19/2025 5:13 PM CDT Postsurgical changes from left jiong-pti-qtrn amputation. No acute fracture. Mild diffuse lower extremity soft tissue edema. No knee joint effusion. Dictated by: Jersey Marquez MD The radiology attending physician has personally reviewed this study, and had reviewed and/or edited this written report and agrees with it. Electronically signed by: Zach Hernandez M.D. Narrative 01/19/2025 5:13 PM CDT EXAMINATION: XR KNEE LEFT 1 OR 2 VIEWS HISTORY: Left knee pain. COMPARISON: CT angiography 05/25/2021 Procedure Note Zach Hernandez MD PhD - 01/19/2025 EXAMINATION: XR KNEE LEFT 1 OR 2 VIEWS HISTORY: Left knee pain. COMPARISON: CT angiography 05/25/2021 IMPRESSION: Postsurgical changes from left mtpmi-pws-pemf amputation. No acute fracture. Mild diffuse lower extremity soft tissue edema. No knee joint effusion. Dictated by: Jersey Marquez MD The radiology attending physician has personally reviewed this study, and had reviewed and/or edited this written report and agrees with it. Electronically signed by: Zach Hernandez M.D. us Melchor Camp MD IMG XR PROCEDURES Sherri l Result from Last 3 Months Insurance AETNA MEDICARE GOLD [facility] MEDICARE Address: [address] [place] [address] [facility] CHOICE PLUS [facility] CHOICE PLUS [facility] GOLD Advance Directives For more information, please contact: [phone] * Full Code (Latest Code Status on File) Date Activated Date Inactivated Comments 03/19/2024 2:12 PM 03/20/2024 8:31 PM * Full Code Date Activated Date Inactivated Comments 06/27/2021 12:18 PM 07/06/2021 10:15 PM * Full Code Date Activated Date Inactivated Comments 12/25/2018 12:48 PM 12/27/2018 7:16 PM Care Teams Physician Intensivist Relationship Specialty Start Date End Date Tanner Montez MD [address] [place] [address] PCP - General 01/13/19 Africa Joel MD Consulting Physician Infectious Diseases 12/27/18
[2025-03-29 10:18] LABS: CRP 0.9 mg/dL (<1.0)
[2025-03-29] MEDS: CLINDAMYCIN HCL 150 MG CAP 300 MG PO (11:41)
[2025-03-29 11:53] VITALS: BP 154/77; PULSE 63; RESP 20; TEMP 36.7; O2SAT 100
--- NOTE | 2025-04-01 12:51 | PC.NURSE ---
PRELIMINARY BLOOD CULTURE NO GROWTH IN 24 HOURS
--- NOTE | 2025-04-02 12:09 | PC.NURSE ---
PRELIMINARY BLOOD CULTURE NO GROWTH IN 48 HOURS
--- NOTE | 2025-04-05 13:15 | PC.NURSE ---
final blood cultures x2 reviewed. no growth in 5 days
== END 2025-03-29 11:56 | disposition short-term general hospital (02) ==
PROVIDERS: Emergency Provider Emergency Medicine; PCP Family Medicine
DX: M79.662 Pain in left lower leg (principal)
CPT/HCPCS: 36415; 73700; 80053; 83605; 85025; 85380; 86140; 87040; 99284

== ENCOUNTER 2025-03-29 12:47 | Emergency (ER) | payer MEDICARE, SELFPAY ==
--- NOTE | ~2025-03-29 | US_ITS ---
EXAMINATION: US venous doppler [facility] DATE: 03/29/2025 13:41 INDICATION: Prior left below the knee amputation presenting with left lower limb pain TECHNIQUE: Grayscale ultrasound images without and with compression and Doppler ultrasound images of the left lower extremity veins were obtained. COMPARISON: None. FINDINGS: The visualized portions of left common femoral vein, profunda (deep) femoral vein, femoral vein, popliteal vein, peroneal veins, posterior tibial veins and greater saphenous vein outflow are patent. Normal-sized and appearing left inguinal lymph node measuring up to 9 mm in maximal short axis diameter with central echogenic fatty hilum. IMPRESSION: 1. No deep venous thrombosis in the left lower limb. Reviewed, dictated and finalized at location A.
[2025-03-29 12:53] VITALS: BP 155/93; PULSE 87; RESP 16; TEMP 36.4; O2SAT 98
--- OUTSIDE RECORDS SUMMARY | 2025-03-29 13:49 | XMS_ITS | Clinical Summary ---
Author Organization [facility] Healthcare Address [address] [place] [address] Care Team Providers Care Rotary Dryer Operator Name Role Phone Africa Joel MD Unavailable [phone] Tanner Montez MD Primary Care Provide r [...] (06/10/2021): Added automatically from request for surgery [id number] Assessment & Plan (06/23/2022 12:51 PM CORRUGATOR OPERATOR): Previously draining sinus now appears closed. Patient [...] input Assessment & Plan (08/23/2021 2:10 PM CORRUGATOR OPERATOR): On careful review of his chart, it [...] PRN Assessment & Plan (07/19/2021 4:09 PM CORRUGATOR OPERATOR): Continue Ceftriaxone 2 grams IV every 24 [...] care. Assessment & Plan (07/01/2021 1:31 PM CORRUGATOR OPERATOR): 50 y.o. male w/PMH of lawnmower L-calcaneous [...] After hours, please contact the ID fellow air operations manager. senior living (current) use of antibiotics 9 Assessment & Plan (08/23/2021 2:11 PM CORRUGATOR OPERATOR): Labs reviewed PICC line D/C'd today Assessment & Plan (07/19/2021 4:09 PM CORRUGATOR OPERATOR): Continue Ceftriaxone 2g IV Q 24 hours [...] heel over calcaneum x 8 weeks. Saw sole layer hand (Dr. Arroyo) who ordered MRI which showed [...] weeks. Assessment & Plan (06/23/2022 1:00 PM CORRUGATOR OPERATOR): Area of draining sinus appears closed, and [...] concerns Assessment & Plan (09/09/2018 12:06 PM CORRUGATOR OPERATOR): Recommendations: - Exam concerning for persistent infection. [...] results. Assessment & Plan (08/12/2018 12:07 PM CORRUGATOR OPERATOR): Recommendations: - Left foot healing well. Small [...] month Assessment & Plan (06/25/2018 1:13 PM CORRUGATOR OPERATOR): Likely due to anatomical malalignment from prior [...] Description 02/10/2025 1:00 PM CDT Office Visit [facility] Medicine Orthopaedic Surgery [address] [facility] [address] [place] [address] [place] [address] Ishan Miles PA History of left below knee amputation (HCC) (Primary Dx); Impaired functional mobility, balance, gait, and endurance 02/09/2025 Telephone [facility] Medicine Orthopaedic Surgery [address] [place] [address] [place] [address] Ishan Miles PA 01/20/2025 Telephone [facility] Medicine Orthopaedic Surgery [address] [facility] Medical Office Building [address] [place] [address] Bertha Sibley RN 01/20/2025 Results Follow-Up [facility] Orthopa[facility] [address] [facility] [address] [place] [phone] Melchor Camp MD XR Knee Left 1 or 2 Views 01/19/2025 3:33 PM CDT - 01/19/2025 11:59 PM CDT Hospital Encounter [facility] [address] [place] [address] Melchor Camp MD Left knee pain, unspecified chronicity Discharge Disposition: Discharge to home or self care 01/19/2025 2:00 PM CDT Office Visit [facility] [address] [facility] [address] [place] [phone] Melchor Camp MD Left knee pain, unspecified [...] this topic Medical Devices Implanted Type Area Welding Machine Operator Arc Device Identifier Shelf Expiration Date Model / Serial / Lot Synovis [place] Allian 2753 [place] 2.5mm Ring Pin Ultrasonic Doppler 20mhz Health And Safety Technician Anastomosis Latex Free - [id number] Implanted:Qty: 1 on 06/30/2021 by Austen Dempsey MD at [facility] Left: Leg Synovis [place] Harshad [id number] 10/14/2025 2753 / / [id number] Procedures Procedure Name Priority Date/Time Associated Diagnosis [...] 5:13 PM CDT Postsurgical changes from left arabm-spz-bcwh amputation. No acute fracture. Mild diffuse lower [...] angiography 05/25/2021 IMPRESSION: Postsurgical changes from left khobr-qzi-rnzn amputation. No acute fracture. Mild diffuse lower [...] Last 3 Months Insurance AETNA MEDICARE GOLD [facility] CHOICE PLUS [facility] CHO[facility]US [facility]OLD Advance Directives For more information, please contact: [phone] * Full Code (Latest Code Status on File) Date Activated Date Inactivated Comments 03/19/2024 2:12 PM 03/20/2024 8:31 PM * Full Code Date Activated Date Inactivated Comments 06/27/2021 12:18 PM 07/06/2021 10:15 PM * Full Code Date Activated Date Inactivated Comments 12/25/2018 12:48 PM 12/27/2018 7:16 PM Care Teams Rotary Dryer Operator Relationship Specialty Start Date End Date Tanner Montez MD [address] [place] [address] PCP - General 01/13/19 Africa Joel MD Consulting Physician Infectious Diseases 12/27/18
[2025-03-29 14:34] VITALS: BP 135/79; PULSE 72; RESP 15; O2SAT 98
[2025-03-29 14:40] LABS: Hematocrit 40.3 % (42.0-52.0); Hemoglobin 13.4 g/dL (14.0-18.0); Immature Granulocyte Percent A 0.4 % (0-0.5); Lymphocytes Absolute Auto 1.71 K/mm3 (0.9-3.2); Mean Corpuscular HGB Conc 33.3 g/dl (32-36); Mean Corpuscular Hemoglobin 30.0 pg (26-34); Mean Corpuscular Volume 90.4 fl (80-100); Nucleated Red Blood Cells Absolute Auto 0.000 K/mm3 (0.0-0.012); Nucleated Red Blood Cells Perc 0.0 % (0.0-0.2); Platelet Count Result 342 k/mm3 (150-375); Red Blood Count 4.46 M/mm3 (4.6-6.20); White Blood Count 10.3 K/mm3 (4.5-10.0)
[2025-03-29 14:50] LABS: INR 0.9; Prothrombin Time 12.4 Seconds (11.1-14.7)
[2025-03-29 14:51] LABS: Partial Thromboplastin Time 26.5 Seconds (22.3-36.8)
[2025-03-29 14:56] LABS: Alanine Aminotransferase 29 U/L (6-50); Albumin Level 4.0 g/dL (3.5-5.1); Alkaline Phosphatase 87 U/L (38-126); Anion Gap 6 mmol/L (4-12); Aspartate Amino Transferase 31 U/L (17-59); Bilirubin,Total 0.6 mg/dL (0.2-1.3); Blood Urea Nitrogen 17 mg/dL (9-20); Calcium 9.4 mg/dL (8.4-10.2); Carbon Dioxide 30 mmol/L (22-30); Chloride 103 mmol/L (98-107); Estimated CRCL calculation 79 ml/min; Estimated Glomerular Filt Rate > 60; Glucose 99 mg/dL (65-110); Potassium 4.1 mmol/L (3.4-5.0); Sodium 139 mmol/L (137-145); Total Protein 7.5 g/dL (6.3-8.2)
[2025-03-29] MEDS: HYDROcodone/acetaminophen (*CRX) 7.5-325 MG TABLET 1 TAB PO (15:12)
--- NOTE | 2025-03-29 15:30 | ED.GENADULT ---
HPI - General Adult General Chief complaint: Extremity Injury, Lower Stated complaint: r/o blood clot LLE Time Seen by Provider: 03/29/25 13:37 History of Present Illness HPI narrative: 54-year-old male present to the emergency department for evaluation for left lower extremity pain. Patient does have a history an amputation on February of 2024 secondary to worsening chronic infections. Patient states that he has had worsening pain over the last few days. Patient did initially present to an outside hospital and was diagnosed with a potential cellulitis due to a CT scan. Patient's D-dimer was elevated and patient was referred to our emergency department for further evaluation including an ultrasound. Related Data Home Medications ?Medication ?Instructions ?Recorded ?Confirmed ?Last Taken ?Type multivitamin 1 tablet PO DAILY 11/08/21 12/18/22 11/27/21 History omega 6-kby-izh-fish oil 60 mg-90 1 cap PO DAILY 11/08/21 12/18/22 11/27/21 History mg-500 mg capsule (Fish Oil) vitamin B complex (B 1 tablet PO DAILY 11/08/21 12/18/22 11/27/21 History Complex-Vitamin B12 tablet) modafinil 200 mg tablet 200 mg PO DAILY 03/29/25 Unknown History Allergies Allergy/AdvReac Type Severity Reaction Status Date / Time No Known Allergies Allergy Verified 03/29/25 13:02 Review of Systems Review of Systems: All systems reviewed & are unremarkable except as noted in HPI and below PMFSH Past Medical History Medical History 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 Abraham Juan H/O foot surgery x3 Family History Family History Father Family history of lung cancer Family history of malignant melanoma Family history of pancreatic cancer Family history of malignant neoplasm of breast in first degree relative Other Family history of malignant neoplasm of breast Social History Social History Smoking status: Never smoker Alcohol intake: current Living arrangements: with family Occupation/Education: retired Spiritual care concerns: No Exam Narrative: APPEARANCE: Well appearing, no pain, no distress, well-nourished. HEAD: normocephalic, atraumatic. EYES: PERRLA/EOMI, conjunctivae clear. NOSE: Normal no drainage EARS:TMS clear with good light reflex. THROAT: Pharynx clear, no exudate. NECK: Supple. No adenopathy, no masses. RESPIRATORY: Airway patent, respirations nonlabored. Clear to auscultation bilaterally, no rales, rhonchi, wheezing. CARDIOVASCULAR: Regular rate and rhythm without murmurs rubs or gallops. ABDOMINAL: Soft, nontender, nondistended, normal bowel sounds MUSCULOSKELETAL: Moves all extremities. Strength/ROM intact, No edema, No calf tenderness. NEURO: Alert. Cranial nerves II through XII intact. Grossly intact SKIN: Mild area of erythema at the distal left stump. Course Vital Signs Vital signs: Vital Signs Temperature 97.5 F L 03/29/25 12:53 Pulse Rate 87 03/29/25 12:53 Respiratory Rate 16 03/29/25 12:53 Blood Pressure 155/93 H 03/29/25 12:53 Pulse Oximetry 98 03/29/25 12:53 Oxygen Delivery Room Air 03/29/25 12:53 Temperature 97.5 F L 03/29/25 12:53 Pulse Rate 72 03/29/25 14:34 Respiratory Rate 15 03/29/25 14:34 Blood Pressure 135/79 03/29/25 14:34 Pulse Oximetry 98 03/29/25 14:34 Oxygen Delivery Room Air 03/29/25 12:53 Medical Decision Making [facility] Narrative Medical decision making narrative: 54-year-old male presents emergency department for evaluation for left stump discomfort and mild erythema. Patient is currently afebrile but does have a leukocytosis of 10.3 and hemoglobin of 13.4. Patient has an INR of 0.9 and no acute abnormalities on his CMP patient did have an outside D-dimer that was elevated and ultrasound performed our facility was negative for DVT. Patient was provided anti-inflammatories for pain control. Patient had a script for clindamycin that was rewritten since he is unable to access the initial script. Patient was also provided additional medication for pain control. Patient was encouraged of close follow-up with his physicians. CT scan showed possible cellulitis with no evidence of osteomyelitis. I do suspect some with patient's pain is secondary to bone pain muscle pain due to ambulating using his prosthetic with increased frequency recently. Patient was encouraged of close follow-up with his physicians. Differential Diagnosis Differential Diagnosis: Osteomyelitis, cellulitis, contusion, bone pain, muscle pain Vital Signs Vital Signs: Vital Signs Temperature 97.5 F L 03/29/25 12:53 Pulse Rate 87 03/29/25 12:53 Respiratory Rate 16 03/29/25 12:53 Blood Pressure 155/93 H 03/29/25 12:53 Pulse Oximetry 98 03/29/25 12:53 Oxygen Delivery Room Air 03/29/25 12:53 Temperature 97.5 F L 03/29/25 12:53 Pulse Rate 72 03/29/25 14:34 Respiratory Rate 15 03/29/25 14:34 Blood Pressure 135/79 03/29/25 14:34 Pulse Oximetry 98 03/29/25 14:34 Oxygen Delivery Room Air 03/29/25 12:53 Lab Data Lab results reviewed: Yes I reviewed the patient's lab results. 03/29/25 14:35 03/29/25 14:35 Labs: Lab Results 03/29/25 Range/Units 14:35 WBC 10.3 H (4.5-10.0) K/mm3 RBC 4.46 L (4.6-6.20) M/mm3 Hgb 13.4 L (14.0-18.0) g/dL Hct 40.3 L (42.0-52.0) % MCV 90.4 (80-100) fl MCH 30.0 (26-34) pg MCHC 33.3 (32-36) g/dl RDW 12.9 (11.5-14.5) % Plt Count 342 (150-375) k/mm3 MPV 8.3 (7.4-10.4) fl Immature Gran % (Auto) 0.4 (0-0.5) % Neut % (Auto) 69.2 (45.5-73.1) % Lymph % (Auto) 16.6 L (18.3-44.2) % Sharp % (Auto) 8.7 H (2.6-8.5) % Eos % (Auto) 4.5 H (0-4.4) % Baso % (Auto) 0.6 (0.2-1.2) % Lymph # (Auto) 1.71 (0.9-3.2) K/mm3 Sharp # (Auto) 0.9 H (0.1-0.6) K/mm3 Eos # (Auto) 0.5 H (0-0.3) K/mm3 Baso # (Auto) 0.1 (0.0-0.1) K/mm3 Abs Immat Gran (auto) 0.04 H (0.00-0.031) K/mm3 Absolute Neuts (auto) 7.2 H (1.3-6.7) K/mm3 Absolute Nucleated RBC 0.000 (0.0-0.012) K/mm3 Nucleated RBC % 0.0 (0.0-0.2) % PT 12.4 (11.1-14.7) Seconds INR 0.9 APTT 26.5 (22.3-36.8) Seconds Sodium 139 (137-145) mmol/L Potassium 4.1 (3.4-5.0) mmol/L Chloride 103 (98-107) mmol/L Carbon Dioxide 30 (22-30) mmol/L Anion Gap 6 (4-12) mmol/L BUN 17 (9-20) mg/dL Creatinine 1.12 (0.7-1.3) mg/dL Estim Creat Clear Calc 79 ml/min Estimated GFR > 60 (59 - ) Glucose 99 (65-110) mg/dL Calcium 9.4 (8.4-10.2) mg/dL Total Bilirubin 0.6 (0.2-1.3) mg/dL AST 31 (17-59) U/L ALT 29 (6-50) U/L Alkaline Phosphatase 87 (38-126) U/L Total Protein 7.5 (6.3-8.2) g/dL Albumin 4.0 (3.5-5.1) g/dL Imaging Data Radiologist's impression: Impressions Venous Doppler Study 03/29/25 13:47 IMPRESSION: 1. No deep venous thrombosis in the left lower limb. Discharge Plan Discharge Clinical Impression: Left leg pain Patient Disposition: Home Condition: Stable Instructions: Antibiotic Form Additional Instructions: Continue your antibiotics as directed until completed. Naproxen as directed until completed. [place] as need for additional pain control. Have close follow-up with your medical team. If you have any worsening symptoms please call or return to the emergency department. Patient Language: Indonesian Prescriptions: New clindamycin HCl [Cleocin HCl] 300 mg capsule 300 mg PO Q6H 7 Days Qty: 28 0RF hydrocodone-acetaminophen 5-325 mg tablet 1 tablet PO Q12H PRN (Reason: pain) Qty: 14 0RF naproxen [Naprosyn] 500 mg tablet 500 mg PO BID 7 Days Qty: 14 0RF Discontinued clindamycin HCl [Cleocin HCl] 300 mg capsule 300 mg PO TID 7 Days Qty: 21 0RF No Action modafinil 200 mg tablet 200 mg PO DAILY multivitamin Tablet 1 tablet PO DAILY vitamin B complex [B Complex-Vitamin B12] Tablet 1 tablet PO DAILY omega 5-kge-qgv-fish oil [Fish Oil] 60-90-500 mg capsule 1 cap PO DAILY Follow-up/Referrals: Tanner Montez MD [Primary Care Provider, Internal Medicine]
[2025-03-29] MEDS: KETOROLAC 15 MG/ML VIAL (*BKC) IV PUSH (15:48)
[2025-03-29] MEDS: CLINDAMYCIN HCL 150 MG CAP 300 MG PO (15:49)
--- NOTE | 2025-03-31 14:56 | PC.NURSE ---
preliminary blood cultures x2 reviewed. no growth at this time
== END 2025-03-29 15:59 | disposition home or self-care (01) ==
PROVIDERS: Emergency Provider Emergency Medicine; PCP Family Medicine
DX: T87.44 Infection of amputation stump, left lower extremity (principal); L03.116 Cellulitis of left lower limb; M79.605 Pain in left leg; R79.89 Other specified abnormal findings of blood chemistry; Y83.5 Amputation of limb(s) as the cause of abnormal reaction of the patient, or of later complication, without mention of misadventure at the time of the procedure
CPT/HCPCS: 36415; 80053; 85025; 85610; 85730; 93971; 96374; 99284; A9270; J1885

== ENCOUNTER 2025-05-14 09:31 | Outpatient (CLI) | payer MEDICARE, SELFPAY ==
--- NOTE | ~2025-05-14 | CT_ITS ---
EXAMINATION: CT abdomen pelvis w con DATE: 05/14/2025 10:13 INDICATION: Chronic abdominal pain. Diarrhea. TECHNIQUE: Computed tomography (CT) of the abdomen and pelvis was performed with 100 mL Omnipaque 350 intravenous contrast. Automated exposure control and iterative reconstruction technique were employed. The dose-length product was 490.96 mGy-cm. COMPARISON: None. FINDINGS: The visualized portions of lung bases are clear without pneumonia or pleural effusion. The heart size is normal. No pericardial effusion. The liver, gallbladder, spleen, pancreas, adrenal glands, and kidneys are normal. There is a left inguinal hernia containing fat. There is wall thickening of the colon from the hepatic flexure to the rectum with prominent mesenteric vessels, consistent with colitis. There are no pathologically enlarged lymph nodes. There is no free intraperitoneal fluid. There is moderate thoracic spondylosis. IMPRESSION: 1. Colitis from the hepatic flexure to the rectum. 2. Left inguinal hernia containing fat. Reviewed, dictated and finalized at location E.
--- OUTSIDE RECORDS SUMMARY | 2025-05-14 10:31 | XMS_ITS | Clinical Summary ---
Author Organization [facility] Healthcare Address [address] [place] [address] Care Team Providers Care Scheduler Conveyor Name Role Phone Africa Joel MD Unavailable [phone] Tanner Montez MD Primary Care Provide r [...] (06/10/2021): Added automatically from request for surgery [id number] Assessment & Plan (06/23/2022 12:51 PM SOLE LAYER HAND): Previously draining sinus now appears closed. Patient [...] input Assessment & Plan (08/23/2021 2:10 PM SOLE LAYER HAND): On careful review of his chart, it [...] PRN Assessment & Plan (07/19/2021 4:09 PM SOLE LAYER HAND): Continue Ceftriaxone 2 grams IV every 24 [...] care. Assessment & Plan (07/01/2021 1:31 PM SOLE LAYER HAND): 50 y.o. male w/PMH of lawnmower L-calcaneous [...] After hours, please contact the ID fellow business education instructor. [facility] (current) use of antibiotics 9 Assessment & Plan (08/23/2021 2:11 PM SOLE LAYER HAND): Labs reviewed PICC line D/C'd today Assessment & Plan (07/19/2021 4:09 PM SOLE LAYER HAND): Continue Ceftriaxone 2g IV Q 24 hours [...] heel over calcaneum x 8 weeks. Saw director of intelligence (Dr. Arroyo) who ordered MRI which showed [...] weeks. Assessment & Plan (06/23/2022 1:00 PM SOLE LAYER HAND): Area of draining sinus appears closed, and [...] concerns Assessment & Plan (09/09/2018 12:06 PM SOLE LAYER HAND): Recommendations: - Exam concerning for persistent infection. [...] results. Assessment & Plan (08/12/2018 12:07 PM SOLE LAYER HAND): Recommendations: - Left foot healing well. Small [...] month Assessment & Plan (06/25/2018 1:13 PM SOLE LAYER HAND): Likely due to anatomical malalignment from prior [...] Encounters Date Type Department Care Team Description 05/11/2025 Telephone [facility] Medicine Orthopaedic Surgery [address] [place] [address] [place] [address] Ishan Miles PA from Last 3 Months Immunizations Immunization Administration Dates Next Due Tdap 12/14/2014 Surgical History Surgery Date Site/Laterality Comments ANKLE SURGERY 1980s Left following lawnmower injury to L calcaneus- multiple surgeries--last summer 1981 COLONOSCOPY 2008, 2019 WOUND DEBRIDEMENT 11/27/2018 - 12/27/2018 Left [...] this topic Medical Devices Implanted Type Area Homicide Investigator Device Identifier Shelf Expiration Date Model / Serial / Lot [employer] Allian 2753 [place] 2.5mm Ring Pin Ultrasonic Doppler 20mhz Seed Potato Arranger Anastomosis Latex Free - [id number] Implanted:Qty: 1 on 06/30/2021 by Austen Dempsey MD at [facility] Left: Leg [employer] Lamiecco Harshad [id number] 10/14/2025 [id number] / / [id number] Insurance [employer] MEDICARE GOLD [facility] CHOICE PLUS [facility] CHOICE PLUS [employer] MEDICARE GOLD Advance Directives For more information, please contact: [phone] * Full Code (Latest Code Status on File) Date Activated Date Inactivated Comments 03/19/2024 2:12 PM 03/20/2024 8:31 PM * Full Code Date Activated Date Inactivated Comments 06/27/2021 12:18 PM 07/06/2021 10:15 PM * Full Code Date Activated Date Inactivated Comments 12/25/2018 12:48 PM 12/27/2018 7:16 PM Care Teams Scheduler Conveyor Relationship Specialty Start Date End Date Tanner Montez MD [address], [place] [id number] PCP - General 01/13/19 Africa Joel MD Consulting Physician Infectious Diseases 12/27/18
== END 2025-05-14 09:32 | disposition home or self-care (01) ==
LOC: CHSIMG 09:32
PROVIDERS: PCP Family Medicine; Visit Provider Family Medicine
DX: R10.20 Pelvic and perineal pain unspecified side (principal); K52.9 Noninfective gastroenteritis and colitis, unspecified; K40.90 Unilateral inguinal hernia, without obstruction or gangrene, not specified as recurrent
CPT/HCPCS: 74177; Q9967

== ENCOUNTER 2025-07-13 00:58 | Day surgery (SDC) | payer MEDICARE, SELFPAY ==
--- NOTE | 2025-06-05 10:34 | SUR.PREOP ---
Addendum entered by SKYLAR MathewA 06/05/25 10:41: CT results on 05/14/25 and pt's medication that were ordered by pt's PCP Sher discussed with Dr. Whitfield. Original Note: Pt currently being treated for recurrent osteomyelitis and having diarrhea. CT results on 05/14 and pt's condition including medication that were ordered by pt's PCP Sher. Pt says the diarrhea is improving. Discussed patient with Dr. Guzmán if he still wants to proceed with colonoscopy on 06/11/25. Dr. Guzmán recommended the patient wait another 4-6 weeks before he does the patient's colonoscopy. Message sent to the office.
[2025-06-23 11:36] VITALS: BMI 25.7
--- OUTSIDE RECORDS SUMMARY | 2025-07-13 01:01 | XMS_ITS | Clinical Summary ---
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 Take 1 tablet (200 mg total) by mouth as needed (Sleep issue's) 9 Active valACYclovir (VALTREX) 1 gram tabletIndications: Fever blisters Take 1 tablet (1,000 mg total) by mouth as needed (Fever blisters) 4 Active polycarbophil (FIBERCON) 625 mg tabletIndications: constipation Take 1 tablet (625 mg total) by mouth nightly Active aluminum hydroxide-magnesiu m carbonate (GAVISCON) 160-105 mg tablet,chewableInd ications:Heartburn ,gastroesophageal reflux disease Take 4 tablets by mouth 3 (three) times a day before meals Active doxycycline 100 mg tabletIndications: L tibial osteomyelitis Take 1 tablet (100 mg total) by mouth 2 (two) times a day 60 tablet 1 5 08/11/19 26 Active Active Problems Problem Noted Date Diagnosed Date Chronic pain in left foot 03/19/2024 Chronic foot pain, left 02/25/2024 COVID-19 vaccine series declined 08/23/2021 Chronic left calcaneous osteomyelitis 06/10/2021 Overview (06/10/2021): Added automatically from request for surgery [id number] Assessment & Plan (06/23/2022 12:51 PM RESIDENTIAL CHILD CARE COUNSELOR): Previously draining sinus now appears closed. Patient [...] input Assessment & Plan (08/23/2021 2:10 PM RESIDENTIAL CHILD CARE COUNSELOR): On careful review of his chart, it [...] PRN Assessment & Plan (07/19/2021 4:09 PM RESIDENTIAL CHILD CARE COUNSELOR): Continue Ceftriaxone 2 grams IV every 24 [...] care. 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 alf (current) use of antibiotics 9 Assessment & Plan (08/23/2021 2:11 PM RESIDENTIAL CHILD CARE COUNSELOR): Labs reviewed PICC line D/C'd today Assessment & Plan (07/19/2021 4:09 PM RESIDENTIAL CHILD CARE COUNSELOR): Continue Ceftriaxone 2g IV Q 24 hours [...] (11/27/2018): Added automatically from request for surgery [id number] Assessment & Plan (04/15/2021 4:14 PM CDT): [...] heel over calcaneum x 8 weeks. Saw briquette molder (Dr. Arroyo) who ordered MRI which showed [...] weeks. Assessment & Plan (06/23/2022 1:00 PM RESIDENTIAL CHILD CARE COUNSELOR): Area of draining sinus appears closed, and [...] concerns Assessment & Plan (09/09/2018 12:06 PM RESIDENTIAL CHILD CARE COUNSELOR): Recommendations: - Exam concerning for persistent infection. [...] results. Assessment & Plan (08/12/2018 12:07 PM RESIDENTIAL CHILD CARE COUNSELOR): Recommendations: - Left foot healing well. Small [...] month Assessment & Plan (06/25/2018 1:13 PM RESIDENTIAL CHILD CARE COUNSELOR): Likely due to anatomical malalignment from prior [...] Encounters Date Type Department Care Team Description 06/09/2025 11:22 AM RESIDENTIAL CHILD CARE COUNSELOR - 06/09/2025 11:59 PM RESIDENTIAL CHILD CARE COUNSELOR Hospital Encounter [address] [place] [address] Andria Romero MD Discharge Disposition: Discharge to home or self care 06/09/2025 9:00 AM RESIDENTIAL CHILD CARE COUNSELOR Office Visit [facility] Medicine Infectious Diseases [address] [place] [address] Daniel Fonseca MD Osteomyelitis of other site, unspecified type (Primary Dx) 05/18/2025 9:51 AM CDT - 05/18/2025 11:59 PM CDT Hospital Encounter [facility] [id number] [place] [id number] Left ankle pain, unspecified chronicity Discharge Disposition: Discharge to home or self care 05/18/2025 8:08 AM CDT - 05/18/2025 11:59 PM CDT Hospital Encounter [facility] [address] [place] [address] Discharge Disposition: Discharge to home or self care 05/18/2025 8:07 AM CDT - 05/18/2025 11:59 PM CDT Hospital Encounter [facility] [address] [place] [address] Discharge Disposition: Discharge to home or self care 05/18/2025 8:00 AM CDT Office Visit [facility] Medicine Orthopaedic Surgery [id number] [place] [address] 2nd [address] [place] [address] Melchor Camp MD Left ankle pain, unspecified chronicity (Primary Dx) 05/15/2025 Telephone [facility] Medicine Orthopaedic Surgery [id number] [place] [address] 2nd Floor [address] [place] [address] Bertha Sibley RN 05/11/2025 Telephone [facility] Medicine Orthopaedic Surgery [address] [place] [address] for Advanced Medicine 12th [place] [address] [place] [address] Ishan Miles PA from Last 3 Months [...] Sign Reading Time Taken Comments Blood Pressure 121/75 06/09/2025 9:01 AM RESIDENTIAL CHILD CARE COUNSELOR Pulse 86 06/09/2025 9:01 AM RESIDENTIAL CHILD CARE COUNSELOR Temperature 37 C (98.6 F) 06/09/2025 9:01 AM RESIDENTIAL CHILD CARE COUNSELOR Respiratory Rate 20 03/20/2024 11:40 AM CDT Oxygen Saturation 98% 06/09/2025 9:01 AM RESIDENTIAL CHILD CARE COUNSELOR Inhaled Oxygen Concentration - - Weight 89.4 kg (197 lb) 06/09/2025 9:01 AM RESIDENTIAL CHILD CARE COUNSELOR Height 188 cm (6' 2.02) 06/09/2025 9:01 AM RESIDENTIAL CHILD CARE COUNSELOR Body Mass Index 25.28 06/09/2025 9:01 AM RESIDENTIAL CHILD CARE COUNSELOR Plan of Treatment Health Maintenance Due Date [...] this topic Medical Devices Implanted Type Area Toolmaker Helper Device Identifier Shelf Expiration Date Model / Serial / Lot Stockezy Harshad 2753 [place] 2.5mm Ring Pin Ultrasonic Doppler 20mhz District Resource Officer Anastomosis Latex Free - [id number] Implanted:Qty: 1 on 06/30/2021 by Austen Dempsey MD at [facility] Left: Leg [employer] Family-Mingle Kyleian [id number] 10/14/2025 2753 / / [id number] Procedures Procedure Name Priority Date/Time Associated Diagnosis Comments EGFR Routine 06/09/2025 10:26 AM RESIDENTIAL CHILD CARE COUNSELOR Osteomyelitis of other site, unspecified type DIFFERENTIAL AUTO Routine 06/09/2025 10: 26 AM RESIDENTIAL CHILD CARE COUNSELOR Osteomyelitis of other site, unspecified type CBC WITH AUTO DIFFERENTIAL Routine 06/09/2025 10:26 AM RESIDENTIAL CHILD CARE COUNSELOR Osteomyelitis of other site, unspecified type ERYTHROCYTE SEDIMENTATION RATE Routine 06/09/2025 10:26 AM RESIDENTIAL CHILD CARE COUNSELOR Osteomyelitis of other site, unspecified type CRP (ACUTE PHASE) Routine 06/09/2025 10: 26 AM RESIDENTIAL CHILD CARE COUNSELOR Osteomyelitis of other site, unspecified type COMPREHENSIVE METABOLIC PANEL Routine 06/09/2025 10:26 AM RESIDENTIAL CHILD CARE COUNSELOR Osteomyelitis of other site, unspecified type XR TIBIA FIBULA LEFT 2 VIEWS Schedule Routine, Read Routine (OP Routine) 05/18/2025 9:59 AM CDT Left ankle pain, unspecified chronicity MSK MR OUTSIDE REFERENCE Routine 05/18/2025 8:[address] OUTSIDE REFERENCE Routine 05/18/2025 8:07 AM CDT from Last 3 Months Results * eGFR (06/09/2025 10:26 AM RESIDENTIAL CHILD CARE COUNSELOR) eGFR 72 >=60 mL/min/1. 73 m2 Comment: Interpretive Data Reference Interval Normal >/= 90 mL/min/1.73m2 Mildly decreased* 60 - 89 mL/min/1.73m2 Mildly to moderately decreased 45 - 59 mL/min/1.73m2 Moderately to severely decreased 30 - 44 mL/min/1.73m2 Severely decreased 15 - 29 mL/min/1.73m2 Kidney Failure < 15 mL/min/1.73m2 *Relative to young adult level Estimated glomerular filtration rate is determined by the 2020 CKD-EPI equation recommended by the National Kidney Foundation (A Unifying Approach to GFR Estimation: Recommendations of the NKF-ASK Task Force on Reassessing the Inclusion of Race in Diagnosing Kidney Disease, JASN 2020). The CKD-EPI equation should not be used for patients with unstable renal function and has not been validated in children and those over 70. Current interpretive data was last reviewed 2021. Blood 06/09/2025 10:2 6 AM RESIDENTIAL CHILD CARE COUNSELOR 06/09/2025 12:50 PM RESIDENTIAL CHILD CARE COUNSELOR us Andria Romero MD LAB BLOOD ORDERABLES Final Result [facility] [place] [address] * Differential, auto (06/09/2025 10:26 AM RESIDENTIAL CHILD CARE COUNSELOR) Neutrophil abs 5.94 1.50 - 6.50 K/cumm Imm gran abs 0.03 0.00 - 0.10 K/cumm [facility] Lymphocyte abs 1.57 0.80 - 3.30 K/cumm [facility] Monocyte abs 0.58 0.20 - 0.80 K/cumm [facility] Eosinophil abs 0.14 0.00 - 0.50 K/cumm [facility] Basophil abs 0.03 0.00 - 0.10 K/cumm [facility] Neutrophil pct 71.6 % [facility] Comment: Interpretive Data Percent cell count reference ranges are not reported, since discordance with absolute values may lead to misinterpretation of CBC data. Current Interpretive Data was last revised on 2017. Imm gran pct 0.4 % [facility] Comment: Interpretive Data Percent cell count reference ranges are not reported, since discordance with absolute values may lead to misinterpretation of CBC data. Current Interpretive Data was last revised on 2017. Lymphocyte pct 18.9 % [facility] Comment: Interpretive Data Percent cell count reference ranges are not reported, since discordance with absolute values may lead to misinterpretation of CBC data. Current Interpretive Data was last revised on 2017. Monocyte pct 7.0 % [facility] Comment: Interpretive Data Percent cell count reference ranges are not reported, since discordance with absolute values may lead to misinterpretation of CBC data. Current Interpretive Data was last revised on 2017. Eosinophil pct 1.7 % [facility] Comment: Interpretive Data Percent cell count reference ranges are not reported, since discordance with absolute values may lead to misinterpretation of CBC data. Current Interpretive Data was last revised on 2017. Basophil pct 0.4 % [facility] Comment: Interpretive Data Percent cell count reference ranges are not reported, since discordance with absolute values may lead to misinterpretation of CBC data. Current Interpretive Data was last revised on 2017. Blood 06/09/2025 10:2 6 AM RESIDENTIAL CHILD CARE COUNSELOR 06/09/2025 12:24 PM RESIDENTIAL CHILD CARE COUNSELOR Andria Romero MD LAB BLOOD ORDERABLES Final Result Performing Organization Address [facility] Co de Phone Number [facility] Department [place] [address] * (ABNORMAL) CBC with auto differential (06/09/2025 10:26 AM RESIDENTIAL CHILD CARE COUNSELOR) Pathologist [facility] WBC 8.29 3.80 - 9.90 K/cumm Hgb 12.2(L) 13.0 - 17.5 g/dL [facility] Hct 36.9(L) 38.9 - 50.3 % [facility] Plt 619(H) 150 - 400 K/cumm [facility] MPV 8.4(L) 9.1 - 12.3 fL [facility] RBC 4.18(L) 4.30 - 5.80 M/cumm [facility] MCV 88.3 81.3 - 96.4 fL [facility] MCH 29.2 27.1 - 33.3 pg [facility] MCHC 33.1 32.3 - 35.7 g/dL [facility] RDW CV 13.6 11.1 - 14.9 % [facility] RDW SD 44.3 35.7 - 48.1 fL [facility] NRBC abs 0.00 0.00 - 0.01 K/cumm [facility] Blood 06/09/2025 10:2 6 AM RESIDENTIAL CHILD CARE COUNSELOR 06/09/2025 12:24 PM RESIDENTIAL CHILD CARE COUNSELOR Andria Romero MD LAB BLOOD ORDERABLES Final Result Performing Organization Address [facility] Co de Phone Number [facility] Department [place] [address] * (ABNORMAL) Erythrocyte sedimentation rate (06/09/2025 10:26 AM RESIDENTIAL CHILD CARE COUNSELOR) Pathologist [facility] Erythrocyte sedimentation rate 32(H) 1 - 20 mm/hr Blood 06/09/2025 10:2 6 AM RESIDENTIAL CHILD CARE COUNSELOR 06/09/2025 12:24 PM RESIDENTIAL CHILD CARE COUNSELOR Andria Romero MD LAB BLOOD ORDERABLES Final Result Performing Organization Address City/[facility]/ZIP Co de Phone Number [facility] [place] [address] * CRP (acute phase) (06/09/2025 10:26 AM RESIDENTIAL CHILD CARE COUNSELOR) [facility] CRP 6.3 <=10.0 mg/L Blood 06/09/2025 10:2 6 AM RESIDENTIAL CHILD CARE COUNSELOR 06/09/2025 12:24 PM RESIDENTIAL CHILD CARE COUNSELOR Andria Romero MD LAB BLOOD ORDERABLES Final Result Performing Organization Address [facility] de Phone Number [facility] Department [place] [address] * Comprehensive metabolic panel (06/09/2025 10:26 AM RESIDENTIAL CHILD CARE COUNSELOR) [facility] Sodium 143 135 - 145 mmol/L Potassium, pl 4.2 3.3 - 4.9 mmol/L [facility] Chloride 104 97 - 110 mmol/L [facility] CO2 29 22 - 32 mmol/L [facility] Anion gap 10 2 - 15 mmol/L [facility] BUN 21 6 - 25 mg/dL [facility] Creatinine 1.21 0.80 - 1.30 mg/dL [facility] Glucose 82 70 - 199 mg/dL [facility] Comment: Interpretive Data Fasting glucose >/= 126 mg/dl is diagnostic for diabetes. Fasting is defined as no caloric intake for at least 8 hours. Fasting glucose between 100 mg/dl to 125 mg/dl is diagnostic of prediabetes. In a patient with classic symptoms of hyperglycemia or hyperglycemic crisis, a random glucose >/= 200 mg/dl is diagnostic for diabetes. In the absence of unequivocal hyperglycemia, results should be confirmed by repeat testing. The classification and Diagnosis of Diabetes Diabetes Care 2021; 46: S19-S40. Current interpretive data was last revised 2022. Calcium 9.5 8.5 - 10.3 mg/dL [facility] Bilirubin, total 0.3 0.1 - 1.2 mg/dL [facility] Protein, pl 7.8 6.5 - 8.5 g/dL [facility] Albumin 3.7 3.5 - 5.0 g/dL [facility] Alk phos 106 40 - 130 Units/L [facility] ALT 30 7 - 55 Units/L [facility] AST 24 10 - 50 Units/L [facility] Blood 06/09/2025 10:2 6 AM RESIDENTIAL CHILD CARE COUNSELOR 06/09/2025 12:24 PM RESIDENTIAL CHILD CARE COUNSELOR us Andria Romero MD LAB BLOOD ORDERABLES Final Result [facility] [place] [address] * XR Tibia Fibula Left 2 Views (05/18/2025 9:59 AM CDT) Anatomical Region Laterality Modality Lower Extremities, Lower Leg Left Com puted Radiography 05/18/2025 2:46 PM CDT Impressions 05/18/2025 4:25 PM CDT Left below-knee amputation with new periosteal reaction and new osseous erosion at the distal tibial stump. Recommend correlation for presence of a wound at the stump. Dictated by: Sandip Dickinson MD The radiology attending physician has personally reviewed this study, and had reviewed and/or edited this written report and agrees with it. Electronically signed by: Zach Hernandez M.D. Narrative 05/18/2025 4:25 PM CDT EXAMINATION: XR TIBIA FIBULA LEFT 2 VIEWS HISTORY: Left lower extremity pain COMPARISON: 01/19/2025 FINDINGS: 2 radiographs of the left tibia and fibula are submitted. There are changes of a left below-knee amputation. There is unchanged heterotopic ossification about the left fibular stump without new periosteal reaction or osseous erosion. There is new periosteal reaction and new osseous erosion at the distal tibial stump compared to the prior examination. There is diffuse soft tissue swelling. Procedure Note Zach Hernandez MD PhD - 05/18/2025 EXAMINATION: XR TIBIA FIBULA LEFT 2 VIEWS HISTORY: Left lower extremity pain COMPARISON: 01/19/2025 FINDINGS: 2 radiographs of the left tibia and fibula are submitted. There are changes of a left below-knee amputation. There is unchanged heterotopic ossification about the left fibular stump without new periosteal reaction or osseous erosion. There is new periosteal reaction and new osseous erosion at the distal tibial stump compared to the prior examination. There is diffuse soft tissue swelling. IMPRESSION: Left below-knee amputation with new periosteal reaction and new osseous erosion at the distal tibial stump. Recommend correlation for presence of a wound at the stump. Dictated by: Sandip Dickinson MD The radiology attending physician has personally reviewed this study, and had reviewed and/or edited this written report and agrees with it. Electronically signed by: Zach Hernandez M.D. Melchor Camp MD IMG XR PROCEDURES Sherri l Result * MSK MR Outside Reference (05/18/2025 8:08 AM CDT) Impressions [facility] - 05/18/2025 8:08 AM CDT These images are for Reference purposes only and have not been reviewed by [facility] Radiology. There will be no report generated by a [facility] Radiologist. Narrative [facility] - 05/18/2025 8:08 AM CDT EXAMINATION: Images For Reference Purposes Only Melchor Camp MD [facility] MRI PROCEDURES Fin al Result [facility] * MSK CT Outside Reference (05/18/2025 8:07 AM CDT) Impressions [facility] - 05/18/2025 8:07 AM CDT These images are for Reference purposes only and have not been reviewed by [facility] Radiology. There will be no report generated by a [facility] Radiologist. Narrative [facility] - 05/18/2025 8:07 AM CDT EXAMINATION: Images For Reference Purposes Only us Melchor Camp MD IMG CT PROCEDURES Sherri lozada Result [facility] from Last 3 Months Insurance [employer] GOLD [facility] HMO/PPO Address: [address] [address] [place] [address] [facility] HMO/PPO Address: [address] [address] [place] [address] [employer] MED[employer]ARE GOLD Advance Directives For more information, please contact: [phone] * Full Code (Latest Code Status on File) Date Activated Date Inactivated Comments 03/19/2024 2:12 PM 03/20/2024 8:31 PM * Full Code Date Activated Date Inactivated Comments 06/27/2021 12:18 PM 07/06/2021 10:15 PM * Full Code Date Activated Date Inactivated Comments 12/25/2018 12:48 PM 12/27/2018 7:16 PM Care Teams Aircraft Captain Relationship Specialty Start Date End Date Tanner Montez MD [address] [place] [address] PCP - General 01/13/19 Africa Joel MD Consulting Physician Infectious Diseases 12/27/18
[2025-07-13 10:19] VITALS: BP 145/89; PULSE 83; RESP 18; TEMP 36.1; O2SAT 100; BMI 26.1
[2025-07-13] MEDS: LACTATED RINGERS 1,000 ML 150 ML IV CONT (10:30)
--- NOTE | 2025-07-13 10:45 | WPDANESEPPF ---
Anes - Initial Pre Proc Eval Procedure: Operation Date: 07/13/25 11:45 Proposed Procedures p Diagnostic Colonoscopy - Manuel Kendrick MD Date/Time: 07/13/25 10:45 Surgeon: Manuel Kendrick MD Pre Op Diagnosis: Diarrhea, unspecified Patient Data Age: 54 Gender: M Height: 1.88 m Weight: 92.3 kg Last Vital Signs Temp 97 F L 07/13/25 10:19 Pulse 83 07/13/25 10:19 Resp 18 07/13/25 10:19 BP 145/89 H 07/13/25 10:19 Pulse Ox 100 07/13/25 10:19 O2 Del Method Room Air 07/13/25 10:19 Allergies Allergy/AdvReac Type Severity Reaction Status Date / Time No Known Allergies Allergy Verified 07/13/25 10:18 Home Medications ?Medication ?Instructions ?Recorded ?Confirmed ?Type multivitamin 1 tablet PO DAILY 11/08/21 07/13/25 History omega 7-blm-var-fish oil 60 mg-90 1 cap PO DAILY 11/08/21 07/13/25 History mg-500 mg capsule (Fish Oil) vitamin B complex (B 1 tablet PO DAILY 11/08/21 07/13/25 History Complex-Vitamin B12 tablet) hydrocodone 5 mg-acetaminophen 325 1 tablet PO Q12H PRN pain #14 tabs 03/29/25 06/23/25 Rx mg tablet modafinil 200 mg tablet 200 mg PO DAILY 03/29/25 07/13/25 History doxycycline hyclate 100 mg capsule 100 mg PO Q12H 06/01/25 07/13/25 History sour shahid extract 1,000 mg 1,000 mg PO DAILY 06/23/25 07/13/25 History capsule (Tart Shahid Extract) Patient hx anesthesia problems: none Family hx anesthesia problems: none Results Review: All pre-operative results and documents have been reviewed as part of the pre-operative evaluation. 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 Abraham Juan H/O foot surgery x3 Family History Family History Father Family history of lung cancer Family history of malignant melanoma Family history of pancreatic cancer Family history of malignant neoplasm of breast in first degree relative Other Family history of malignant neoplasm of breast Social History Social History Smoking status: Never smoker Alcohol intake: current Substance use: never Substance use type: does not use Living arrangements: with family Occupation/Education: retired Spiritual care concerns: No Anes - Eval Final PreProcedure Day of Procedure 07/13/25 10:45 Patient weight: normal Lungs: normal air movement Airway: Mallampati scale class II Neurological: alert and oriented Last oral intake: >/= 8 hours ASA classification: I Emergent: no Anesthetic plan: proceed Anesthesia type and monitoring: general GIVS and standard monitoring Results Review: All pre-operative results and documents have been reviewed as part of the pre-operative evaluation. Overall great health, active w wt lifting, no cp or sob w ambulating short distances (recent lower ext amputation 2023). Informed Consent: The patient's anesthetic plan and its attendant risks and benefits were discussed with the patient/family/POA. Questions were solicited and answers provided to the satisfaction of the patient/family/POA.
--- NOTE | 2025-07-13 11:45 | PM.HPGS ---
History of Present Illness History of Present Illness Consent: Risks, benefits, and alternatives have been discussed and questions answered. Patient agrees to proceed with procedure. 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 Abraham Juan H/O foot surgery x3 Family History Family History Father Family history of lung cancer Family history of malignant melanoma Family history of pancreatic cancer Family history of malignant neoplasm of breast in first degree relative Other Family history of malignant neoplasm of breast Social History Social History Smoking status: Never smoker Alcohol intake: current Substance use: never Substance use type: does not use Living arrangements: with family Occupation/Education: retired Spiritual care concerns: No Meds Home Medications and Allergies Home Medications ?Medication ?Instructions ?Recorded ?Confirmed ?Type multivitamin 1 tablet PO DAILY 11/08/21 07/13/25 History omega 8-mxx-etx-fish oil 60 mg-90 1 cap PO DAILY 11/08/21 07/13/25 History mg-500 mg capsule (Fish Oil) vitamin B complex (B 1 tablet PO DAILY 11/08/21 07/13/25 History Complex-Vitamin B12 tablet) hydrocodone 5 mg-acetaminophen 325 1 tablet PO Q12H PRN pain #14 tabs 03/29/25 06/23/25 Rx mg tablet modafinil 200 mg tablet 200 mg PO DAILY 03/29/25 07/13/25 History doxycycline hyclate 100 mg capsule 100 mg PO Q12H 06/01/25 07/13/25 History sour shahid extract 1,000 mg 1,000 mg PO DAILY 06/23/25 07/13/25 History capsule (Tart Shahid Extract) Allergies Allergy/AdvReac Type Severity Reaction Status Date / Time No Known Allergies Allergy Verified 07/13/25 10:18 Vital Signs Vital Signs - 24 hr 07/13/25 10:19 Temperature 97 F L Pulse Rate 83 Respiratory Rate 18 Blood Pressure 145/89 H Pulse Oximetry 100 Oxygen Delivery Room Air Exam Const: General: comfortable and no acute distress HENMT: Face/Nose/Sinus: Normal nares present Eyes: General: appearance normal, both eyes and all related structures Neck: Neck: no JVD Resp: Auscultation: clear to auscultation bilaterally Cardio: Rate: regular rate Rhythm: regular rhythm GI: Inspection: non-distended GI Palp: Yes Soft to palpation Skin: General skin exam: normal color Extrem: General: normal to inspection Psych: Mental Status: mental status grossly normal Assessment and Plan Assessment and plan (1) Left sided ulcerative colitis: Code(s): K51.50 - Left sided colitis without complications Status: Acute Assessment and Plan: colonoscopy with bx on lialda
--- NOTE | 2025-07-13 11:51 | S_PTH ---
PATIENT: Brionna Young LOC: [facility]#:[id number] AGE/SX: 54/M ROOM: RE07/13/[address]: Manuel Kendrick MD : 1970 BED: DIS: 07/13/2025 SPEC #: [id number] RECD: 07/13/25 13:12 STATUS: LANA REQ #: [id number] JENN: 07/13/25 11:[address]: Manuel Kendrick DEPT: [facility] Surgical RECD BY: Ashwini Fair ENTERED: 07/13/25 13:13 SP TYPE: Surgical OTHR DR: Tanner Montez MD Tissues: A - Colon Biopsy B - Colon Biopsy Procedures: Hematoxylin and Eosin Stain Gross and Microscopic Level 4
[2025-07-13 11:58] VITALS: BP 111/65; PULSE 70; RESP 19; O2SAT 98
[2025-07-13 12:08] VITALS: BP 109/65; PULSE 65; RESP 17; O2SAT 98
[2025-07-13 12:18] VITALS: BP 108/65; PULSE 71; RESP 15; O2SAT 97
== END 2025-07-13 12:30 | disposition home or self-care (01) ==
PROVIDERS: PCP Family Medicine; Referring Provider Family Medicine; Visit Provider Internal Medicine Gastroenterology
PROC: 0DJD8ZZ Inspection of Lower Intestinal Tract, Via Natural or Artificial Opening Endoscopic (ICD-10-PCS; CPT 45378; principal; 2025-07-13 11:45)
DX: K51.80 Other ulcerative colitis without complications (principal); K62.89 Other specified diseases of anus and rectum; Z79.891 Long term (current) use of opiate analgesic; Z98.890 Other specified postprocedural states; Z80.1 Family history of malignant neoplasm of trachea, bronchus and lung; Z80.8 Family history of malignant neoplasm of other organs or systems; Z80.0 Family history of malignant neoplasm of digestive organs; Z80.3 Family history of malignant neoplasm of breast
CPT/HCPCS: 45380; 88305; J2003; J2704; J7120

== ENCOUNTER 2025-07-20 12:21 | Outpatient (CLI) | payer MEDICARE, SELFPAY ==
[2025-07-20 13:25] LABS: Hematocrit 39.9 % (42.0-52.0); Hemoglobin 13.1 g/dL (14.0-18.0); Mean Corpuscular HGB Conc 32.8 g/dl (32-36); Mean Corpuscular Hemoglobin 28.7 pg (26-34); Mean Corpuscular Volume 87.5 fl (80-100); Platelet Count Result 325 k/mm3 (150-375); Red Blood Count 4.56 M/mm3 (4.6-6.20); White Blood Count 8.0 K/mm3 (4.5-10.0)
[2025-07-20 13:53] LABS: Alanine Aminotransferase 36 U/L (6-50); Albumin Level 4.4 g/dL (3.5-5.1); Alkaline Phosphatase 66 U/L (38-126); Anion Gap 9 mmol/L (4-12); Aspartate Amino Transferase 38 U/L (17-59); Bilirubin,Total 0.3 mg/dL (0.2-1.3); Blood Urea Nitrogen 23 mg/dL (9-20); CRP < 0.5 mg/dL (<1.0); Calcium 9.9 mg/dL (8.4-10.2); Carbon Dioxide 29 mmol/L (22-30); Chloride 101 mmol/L (98-107); Estimated Glomerular Filt Rate > 60; Glucose 99 mg/dL (65-110); Potassium 4.4 mmol/L (3.4-5.0); Sodium 139 mmol/L (137-145); Total Protein 8.0 g/dL (6.3-8.2)
--- OUTSIDE RECORDS SUMMARY | 2025-07-20 13:55 | XMS_ITS | Clinical Summary ---
Author Organization [facility] Healthcare Address [address] [place] [address] Care Team Providers Care Benefit Authorizer Name Role Phone Africa Joel MD Unavailable [phone] Tanner Montez MD Primary Care Provide r [...] (06/10/2021): Added automatically from request for surgery [id number] Assessment & Plan (06/23/2022 12:51 PM NYLON HOT WIRE CUTTER): Previously draining sinus now appears closed. Patient [...] input Assessment & Plan (08/23/2021 2:10 PM NYLON HOT WIRE CUTTER): On careful review of his chart, it [...] PRN Assessment & Plan (07/19/2021 4:09 PM NYLON HOT WIRE CUTTER): Continue Ceftriaxone 2 grams IV every 24 [...] care. Assessment & Plan (07/01/2021 1:31 PM NY[employer]ON HOT WIRE CUTTER): 50 y.o. male w/PMH of lawnmower L-calcaneous [...] After hours, please contact the ID fellow distribution designer. group home (current) use of antibiotics 9 Assessment & Plan (08/23/2021 2:11 PM NYLON HOT WIRE CUTTER): Labs reviewed PICC line D/C'd today Assessment & Plan (07/19/2021 4:09 PM NYLON HOT WIRE CUTTER): Continue Ceftriaxone 2g IV Q 24 hours [...] (11/27/2018): Added automatically from request for surgery [id number] Assessment & Plan (04/15/2021 4:14 PM CDT): [...] heel over calcaneum x 8 weeks. Saw solids control technician (Dr. Arroyo) who ordered MRI which showed [...] weeks. Assessment & Plan (06/23/2022 1:00 PM NYLON HOT WIRE CUTTER): Area of draining sinus appears closed, and [...] concerns Assessment & Plan (09/09/2018 12:06 PM NYLON HOT WIRE CUTTER): Recommendations: - Exam concerning for persistent infection. [...] results. Assessment & Plan (08/12/2018 12:07 PM NYLON HOT WIRE CUTTER): Recommendations: - Left foot healing well. Small [...] month Assessment & Plan (06/25/2018 1:13 PM NYLON HOT WIRE CUTTER): Likely due to anatomical malalignment from prior [...] Department Care Team Description 06/09/2025 11:22 AM [employer]ON HOT WIRE CUTTER - 06/09/2025 11:59 PM [employer] H[employer] WIRE CUTTER Hospital Encounter [address] [place] [address] Andria Romero MD Discharge Disposition: Discharge to home or self care 06/09/2025 9:00 AM [employer] H[employer] WIRE CUTTER Office Visit [facility] Medicine Infectious Diseases [address] [facility] [address] [place] [address] Daniel Fonseca MD Osteomyelitis of other site, unspecified type (Primary Dx) 05/18/2025 9:51 AM CDT - 05/18/2025 11:59 PM CDT Hospital Encounter [facility] [address] [place] [address] Left ankle pain, unspecified chronicity Discharge Disposition: Discharge to home or self care 05/18/2025 8:08 AM CDT - 05/18/2025 11:59 PM CDT Hospital Encounter [facility] [address] [place] [address] Discharge Disposition: Discharge to home or self care 05/18/2025 8:07 AM CDT - 05/18/2025 11:59 PM CDT Hospital Encounter [facility] [address] [place] [address] Discharge Disposition: Discharge to home or self care 05/18/2025 8:00 AM CDT Office Visit [facility] Medicine Orthopaedic Surgery [address] [place] [address] 2nd [address] [place] [address] Melchor Camp MD Left ankle pain, unspecified chronicity (Primary Dx) 05/15/2025 Telephone [facility] Medicine Orthopaedic Surgery [address] [place] [address] 2[address] Floor [address] [place] [address] Bertha Sibley RN 05/11/2025 Telephone [facility] Medicine Orthopaedic Surgery [address] [place] [address] for Advanced Medicine 12th [place] [address] [place] [address] Ishan Miles PA from Last 3 Months [...] Comments Blood Pressure 121/75 06/09/2025 9:01 AM [employer] H[employer] WIRE CUTTER Pulse 86 06/09/2025 9:01 AM NYLON HOT WIRE CUTTER Temperature 37 C (98.6 F) 06/09/2025 9:01 AM [employer]ON HOT WIRE CUTTER Respiratory Rate 20 03/20/2024 11:40 AM CDT Oxygen Saturation 98% 06/09/2025 9:01 AM [employer] HOT WIRE CUTTER Inhaled Oxygen Concentration - - Weight 89.4 kg (197 lb) 06/09/2025 9:01 AM [employer]ON HOT WIRE CUTTER Height 188 cm (6' 2.02) 06/09/2025 9:01 AM [employer] HOT WIRE CUTTER Body Mass Index 25.28 06/09/2025 9:01 AM [employer] HOT WIRE CUTTER Plan of Treatment Health Maintenance Due Date [...] this topic Medical Devices Implanted Type Area Letter Sorting Machine Operator Device Identifier Shelf Expiration Date Model / Serial / Lot [employer] 275[address] [place] 2.5mm Ring Pin Ultrasonic Doppler [employer] Senior Manager Anastomosis Latex Free - [id number] Implanted:Qty: 1 on 06/30/2021 by Austen Dempsey MD at [facility] Left: Leg [employer] [id number] 10/14/2025 2753 / / [id number] Procedures Procedure Name Priority Date/Time Associated Diagnosis Comments EGFR Routine 06/09/2025 10:26 AM [employer] H[employer] WIRE CUTTER Osteomyelitis of other site, unspecified type DIFFERENTIAL AUTO Routine 06/09/2025 10: 26 AM [employer] H[employer] WIRE CUTTER Osteomyelitis of other site, unspecified type CBC WITH AUTO DIFFERENTIAL Routine 06/09/2025 10:26 AM [employer] H[employer] W[employer] CUTTER Osteomyelitis of other site, unspecified type ERYTHROCYTE SEDIMENTATION RATE Routine 06/09/2025 10:26 AM [employer] H[employer] WIRE CUTTER Osteomyelitis of other site, unspecified type CRP (ACUTE PHASE) Routine 06/09/2025 10: 26 AM [employer] H[employer] WIRE CUTTER Osteomyelitis of other site, unspecified type COMPREHENSIVE METABOLIC PANEL Routine 06/09/2025 10:26 AM [employer] H[employer] WIRE CUTTER Osteomyelitis of other site, unspecified type XR TIBIA FIBULA LEFT 2 VIEWS Schedule Routine, Read Routine (OP Routine) 05/18/2025 9:59 AM CDT Left ankle pain, unspecified chronicity MSK MR OUTSIDE REFERENCE Routine 05/18/2025 8:[address] OUTSIDE REFERENCE Routine 05/18/2025 8:07 AM CDT from Last 3 Months Results * eGFR (06/09/2025 10:26 AM NYLON HOT WIRE CUTTER) eGFR 72 >=60 mL/min/1. 73 m2 Comment: [...] reviewed 2021. Blood 06/09/2025 10:2 6 AM [employer] H[employer] WIRE CUTTER 06/09/2025 12:50 PM [employer] H[employer] WIRE CUTTER us Andria Romero MD LAB BLOOD ORDERABLES Final Result [facility] Department [place] [address] * Differential, auto (06/09/2025 10:26 AM NYLON HOT WIRE CUTTER) Neutrophil abs 5.94 1.50 - 6.50 K/cumm Imm gran abs 0.03 0.00 - 0.10 K/cumm [facility] Lymphocyte abs 1.57 0.80 - 3.30 K/cumm [facility] Monocyte abs 0.58 0.20 - 0.80 K/cumm [facility] Eosinophil abs 0.14 0.00 - 0.50 K/cumm [facility] Basophil abs 0.03 0.00 - 0.10 K/cumm [facility] Neutrophil pct 71.6 % [facility] Comment: Interpretive Data Percent cell count reference ranges are not reported, since discordance with absolute values may lead to misinterpretation of CBC data. Current Interpretive Data was last revised on 2017. Imm gran pct 0.4 % [facility] Comment: Interpretive Data Percent cell count reference ranges are not reported, since discordance with absolute values may lead to misinterpretation of CBC data. Current Interpretive Data was last revised on 2017. Lymphocyte pct 18.9 % [facility] Comment: Interpretive Data Percent cell count reference ranges are not reported, since discordance with absolute values may lead to misinterpretation of CBC data. Current Interpretive Data was last revised on 2017. Monocyte pct 7.0 % [facility] Comment: Interpretive Data Percent cell count reference ranges are not reported, since discordance with absolute values may lead to misinterpretation of CBC data. Current Interpretive Data was last revised on 2017. Eosinophil pct 1.7 % [facility] Comment: Interpretive Data Percent cell count reference ranges are not reported, since discordance with absolute values may lead to misinterpretation of CBC data. Current Interpretive Data was last revised on 2017. Basophil pct 0.4 % [facility] Comment: Interpretive Data Percent cell count reference ranges are not reported, since discordance with absolute values may lead to misinterpretation of CBC data. Current Interpretive Data was last revised on 2017. Blood 06/09/2025 10:2 6 AM [employer] HOT WIRE CUTTER 06/09/2025 12:24 PM [employer] H[employer] WIRE CUTTER Andria Romero MD LAB BLOOD ORDERABLES Final Result Performing Organization Address [facility] Co de Phone Number [facility] Department [place] [address] * (ABNORMAL) CBC with auto differential (06/09/2025 10:26 AM NY[employer]ON HOT WIRE CUTTER) Pathologist [facility] WBC 8.29 3.80 - 9.90 K/cumm Hgb 12.2(L) 13.0 - 17.5 g/dL [facility] Hct 36.9(L) 38.9 - 50.3 % [facility] Plt 619(H) 150 - 400 K/cumm [facility] MPV 8.4(L) 9.1 - 12.3 fL [facility] RBC 4.18(L) 4.30 - 5.80 M/cumm [facility] MCV 88.3 81.3 - 96.4 fL [facility] MCH 29.2 27.1 - 33.3 pg [facility] MCHC 33.1 32.3 - 35.7 g/dL [facility] RDW CV 13.6 11.1 - 14.9 % [facility] RDW SD 44.3 35.7 - 48.1 fL [facility] NRBC abs 0.00 0.00 - 0.01 K/cumm [facility] Blood 06/09/2025 10:2 6 AM [employer] H[employer] WIRE CUTTER 06/09/2025 12:24 PM [employer] H[employer] W[employer] CUTTER Andria Romero MD LAB BLOOD ORDERABLES Final Result Performing Organization Address [facility] Co de Phone Number [facility] Department [place] [address] * (ABNORMAL) Erythrocyte sedimentation rate (06/09/2025 10:26 AM NYLON HOT WIRE CUTTER) Pathologist [facility] Erythrocyte sedimentation rate 32(H) 1 - 20 mm/hr Blood 06/09/2025 10:2 6 AM [employer] H[employer] WIRE CUTTER 06/09/2025 12:24 PM [employer] H[employer] W[employer] CUTTER Andria Romero MD LAB BLOOD ORDERABLES Final Result Performing Organization Address City/[facility]/ZIP Co de Phone Number [facility] Department [place] [address] * CRP (acute phase) (06/09/2025 10:26 AM NYLON HOT WIRE CUTTER) [facility] CRP 6.3 <=10.0 mg/L Blood 06/09/2025 10:2 6 AM [employer] HOT WIRE CUTTER 06/09/2025 12:24 PM [employer] H[employer] W[employer] CUTTER Andria Romero MD LAB BLOOD ORDERABLES Final Result Performing Organization Address [facility] de Phone Number [facility] Department [place] [address] * Comprehensive metabolic panel (06/09/2025 10:26 AM NYLON HOT WIRE CUTTER) [facility] Sodium 143 135 - 145 mmol/L Potassium, pl 4.2 3.3 - 4.9 mmol/L [facility] Chloride 104 97 - 110 mmol/L [facility] CO2 29 22 - 32 mmol/L [facility] Anion gap 10 2 - 15 mmol/L [facility] BUN 21 6 - 25 mg/dL [facility] Creatinine 1.21 0.80 - 1.30 mg/dL [facility] Glucose 82 70 - 199 mg/dL [facility] Comment: Interpretive Data Fasting glucose >/= 126 [...] 2022. Calcium 9.5 8.5 - 10.3 mg/dL [facility] Bilirubin, total 0.3 0.1 - 1.2 mg/dL [facility] Protein, pl 7.8 6.5 - 8.5 g/dL [facility] Albumin 3.7 3.5 - 5.0 g/dL [facility] Alk phos 106 40 - 130 Units/L [facility] ALT 30 7 - 55 Units/L [facility] AST 24 10 - 50 Units/L [facility] Blood 06/09/2025 10:2 6 AM [employer] HOT WIRE CUTTER 06/09/2025 12:24 PM [employer] H[employer] W[employer] CUTTER us Andria Romero MD LAB BLOOD ORDERABLES Final Result [facility] [address] [facility] Department [place] [address] * XR Tibia Fibula Left 2 Views [...] Outside Reference (05/18/2025 8:08 AM CDT) Impressions [facility] - 05/18/2025 8:08 AM CDT These images are for Reference purposes only and have not been reviewed by [facility] Radiology. There will be no report generated by a [facility] Radiologist. Narrative [facility] - 05/18/2025 8:08 AM CDT EXAMINATION: Images For Reference Purposes Only Melchor Camp MD [facility] MRI PROCEDURES Fin al Result [facility] * MSK CT Outside Reference (05/18/2025 8:07 AM CDT) Impressions [facility] - 05/18/2025 8:07 AM CDT These images are for Reference purposes only and have not been reviewed by [facility] Radiology. There will be no report generated by a [facility] Radiologist. Narrative [facility] - 05/18/2025 8:07 AM CDT EXAMINATION: Images For Reference Purposes Only us Melchor Camp MD IMG CT PROCEDURES Sherri lozada Result [facility] from Last 3 Months Insurance [facility] MEDICARE [facility] Address[facility] [address] [place] [address] [facility] CHOICE PLUS [facility] CHOICE PLUS [employer] MEDICARE GOLD Advance Directives For more information, please contact: [phone] * Full Code (Latest Code Status on File) Date Activated Date Inactivated Comments 03/19/2024 2:12 PM 03/20/2024 8:31 PM * Full Code Date Activated Date Inactivated Comments 06/27/2021 12:18 PM 07/06/2021 10:15 PM * Full Code Date Activated Date Inactivated Comments 12/25/2018 12:48 PM 12/27/2018 7:16 PM Care Teams Benefit Authorizer Relationship Specialty Start Date End Date Tanner Montez MD [address] [place] [address] PCP - General 01/13/19 Africa Joel MD Consulting Physician Infectious Diseases 12/27/18
--- OUTSIDE RECORDS SUMMARY | 2025-07-20 13:55 | XMS_ITS | Clinical Summary ---
Author Organization [facility] Address Formerly [facility] [place] [address] Care Team Providers Care Regional Engineer Name Role Phone Millie Pack MD Primary Care Provider [phone] Encounters Date Type Department Care Team Description 05/05/2025 10:00 AM CDT - 05/05/2025 11:59 PM CDT Hospital Encounter [facility] [address] [facility] [place] [address] Millie Pack MD Discharge Disposition: Home or Self Care (Routine Discharge) 05/05/2025 Travel from Last 3 Months Social History Tobacco Use Types Packs/Day Years Used Date Smoking Tobacco: Never Assessed Sex and Gender Information Value Date Recorded Sex Assigned at Male 04/17/2025 3:43 PM CDT Legal Sex Male 8:03 AM CDT Gender Identity Not on file Sexual Orientation Not on file Plan of Treatment Health Maintenance Due Date Last Done Comments Colorectal Cancer Screening Colonoscopy (10 Years) 1971 Annual Physical 1974 Hepatitis C 1989 Hepatitis B Vaccines (1 of 3 - 19+ 3-dose series) 1990 Pneumococcal Vaccine: 50+ Ye ars (1 of 1 - PCV) 2021 Zoster Vaccines (1 of 2) 2021 DTaP, Tdap and Td Vaccines ( 2 - Td or Tdap) 12/14/2024 12/14/2014 COVID-19 Vaccine ( - 2024-2 6 season) 2025 Influenza Adult (#1) 2025 Hepatitis A Vaccines Aged Out No long er eligible based on patient's age to complete this topic Meningococcal B Vaccine Aged Out No l onger eligible based on patient's age to complete this topic Meningococcal Vaccine Aged Out No elier ricky eligible based on patient's age to complete this topic RSV Immunizations Under 20 Months Aged Out No longer eligible based on patient's age to complete this topic Procedures Procedure Name Priority Date/Time Associated Diagnosis Comments MRI KNEE LT WO CON Routine 05/05/2025 11 :28 AM CDT Pain in left leg from Last 3 Months Results * MRI KNEE LT WO CON (05/05/2025 11:28 AM CDT) Anatomical Region Laterality Modality Knee Magnetic Resonan ce 05/05/2025 3:09 PM CDT Impressions 05/05/2025 3:16 PM CDT IMPRESSION: Tissue abnormality about the distal margin of the remaining left tibia at the level of amputation with marrow signal abnormality in the distal aspect of the remaining tibia raising concern of osteomyelitis within the tibia and cellulitis about the cuff of tissue about the distal tibia, most prominent anteriorly and distally. Joint effusion left knee.. Ordered By: MILLIE PACK Interpreted By: Mark Young MD, 05/05/2025 3:09 PM Narrative 05/05/2025 3:16 PM CDT [address] [place] [address] 05/05/2025, 11:04 AM. HISTORY: Left leg pain. 2 skin sores. Prior BK amputation in 2023. EXAM: MRI left knee without contrast. MR imaging of the left knee and remaining half of the left lower leg was performed in the axial, the sagittal and the coronal planes utilizing T1, fat sat T2 and STIR sequence imaging. No comparison. FINDINGS: Prior BK amputation left lower leg with the amputation margin about 21 cm distal to the knee. Decreased T1 increased STIR increased fat sat T2 tissue signal in the couple of soft tissues overlying the amputation margin, most prominent distal to the amputation margin and at the anterior distal aspect of the distal tibia. A surface marker is placed on the soft tissues anterior to the remaining distal margin of the tibia which is reportedly to be an area of is or or tissue inflammation. The tip is area of soft tissue abnormality there is bony signal abnormality in the distal remaining tibia from the distal margin for distance of at least 7.5 cm proximally with mixed increased STIR, mixed decreased T1 signal raising the concern of osteomyelitis. There may be some minimal periosteal reaction or minimal amount of fluid about the cortical surface of the distal tibia. I see no discrete soft tissue mass or drainable fluid collection. The remaining fibula has normal marrow signal without evidence of bony erosion or marrow replacement. Small joint effusion left knee. Intra-articular detail the knee cannot be evaluated as needed dedicated surface coil imaging technique utilized. I see no remarkable thinning of the dorsal patellar cartilage. No definitive tear in the medial or lateral menisci. The cruciate ligaments, medial collateral ligament and patellar tendons are intact. Procedure Note Mark Young MD - 05/05/2025 [place] [id number] [facility] [place] [address] 05/05/2025, 11:04 AM. HISTORY: Left leg pain. 2 skin sores. Prior BK amputation in 2023. EXAM: MRI left knee without contrast. MR imaging of the left knee and remaining half of the left lower leg wasperformed in the axial, the sagittal and the coronal planes utilizing T1,fat sat T2 and STIR sequence imaging. No comparison. FINDINGS: Prior BK amputation left lower leg with the amputation marginabout 21 cm distal to the knee. Decreased T1 increased STIR increased fat sat T2 tissue signal in thecouple of soft tissues overlying the amputation margin, most prominentdistal to the amputation margin and at the anterior distal aspect of thedistal tibia. A surface marker is placed on the soft tissues anterior tothe remaining distal margin of the tibia which is reportedly to be an areaof is or or tissue inflammation. The tip is area of soft tissueabnormality there is bony signal abnormality in the distal remaining tibiafrom the distal margin for distance of at least 7.5 cm proximally withmixed increased STIR, mixed decreased T1 signal raising the concern ofosteomyelitis. There may be some minimal periosteal reaction or minimalamount of fluid about the cortical surface of the distal tibia. I see nodiscrete soft tissue mass or drainable fluid collection. The remaining fibula has normal marrow signal without evidence of bonyerosion or marrow replacement. Small joint effusion left knee. Intra-articular detail the knee cannot beevaluated as needed dedicated surface coil imaging technique utilized. Isee no remarkable thinning of the dorsal patellar cartilage. No definitivetear in the medial or lateral menisci. The cruciate ligaments, medialcollateral ligament and patellar tendons are intact. IMPRESSION: Tissue abnormality about the distal margin of the remaining left tibia atthe level of amputation with marrow signal abnormality in the distalaspect of the remaining tibia raising concern of osteomyelitis within thetibia and cellulitis about the cuff of tissue about the distal tibia, mostprominent anteriorly and distally. Joint effusion left knee.. Ordered By: MILLIE PACK Interpreted By: Mark Young MD, 05/05/2025 3:09 PM us Millie Pack MD MRI Final Result from Last 3 Months Insurance [employer] Care Teams Regional Engineer Relationship Specialty Start Date End Date Millie Pack MD [address] [place] [address] PCP - General FAMILY PRACTICE 04/23/25
[2025-07-20 14:23] LABS: Hepatitis B Surface Antigen Negative (Negative)
[2025-07-20 14:40] LABS: Hepatitis B Surface Anti Res Negative
[2025-07-21 06:08] LABS: Hep B Core Ab, Total Negative (Negative)
== END 2025-07-20 12:22 | disposition home or self-care (01) ==
PROVIDERS: PCP Family Medicine; Visit Provider Internal Medicine Gastroenterology
DX: K51.50 Left sided colitis without complications (principal); R19.7 Diarrhea, unspecified; M20.22 Hallux rigidus, left foot
CPT/HCPCS: 36415; 80053; 85027; 85652; 86140; 86480; 86704; 86706; 87340